=== PATIENT | male | born 1935 | race Caucasian/White ===

== ENCOUNTER 2019-03-10 10:45 | Outpatient (CLI) | payer MEDICARE, SELFPAY ==
--- NOTE | 2019-03-10 11:00 | US_ITS ---
WS: [id number] SCROTAL ULTRASOUND EXAMINATION CLINICAL INFORMATION: INGUINAL MASS: HYDROCOELE AND/OR INGUINAL HERNIA COMPARISON: None. FINDINGS: TESTES Normal in size and echotexture. Large left hydrocele. Color Doppler: Normal color Doppler flow pattern. Right testes size: 3.8 cm x 2.4 cm x 2.9 cm. Left testes size: 3.2 cm x 2.7 cm x 2.6 cm. EPIDIDYMIDES Normal in size and echotexture. Small left spermatocele. Color Doppler: Normal color Doppler flow pattern. Right epididymis size: 0.8 cm Left epididymitis size: 1.7 cm HYDROCELE Large left hydrocele with internal debris. This measures 6.2 x 5.1 cm VARICOCELE None. OTHER FINDINGS None. US/US scrotum [id number] IMPRESSION: 1. Large left hydrocele with some internal debris 6.2 x 5.1 cm 2. Testicles are otherwise unremarkable 3. Incidental small left spermatocele
== END 2019-03-10 10:46 | disposition home or self-care (01) ==
LOC: RAD 10:56
PROVIDERS: Family Provider Family Medicine; PCP Family Medicine; Visit Provider Family Medicine
DX: N43.3 Hydrocele, unspecified (principal); N43.40 Spermatocele of epididymis, unspecified
CPT/HCPCS: 76870

== ENCOUNTER → 2019-05-18 15:23 | Outpatient (BNVA) | payer MEDICARE, SELFPAY | PROVIDERS: Family Provider Family Medicine; PCP Family Medicine; Visit Provider Family Medicine | DX: R63.4 Abnormal weight loss (principal); K52.9 Noninfective gastroenteritis and colitis, unspecified; N40.0 Benign prostatic hyperplasia without lower urinary tract symptoms; E03.9 Hypothyroidism, unspecified; I95.0 Idiopathic hypotension | CPT/HCPCS: 80053; 84443; 85025 ==

== ENCOUNTER 2019-06-09 09:14 | Outpatient (CLI) | payer MEDICARE, SELFPAY ==
--- NOTE | 2019-06-09 09:21 | CT_ITS ---
WS: [id number] CT ABDOMEN AND PELVIS NONCONTRAST HISTORY: abnormal weight loss TECHNIQUE: Imaging performed through the abdomen and pelvis. Coronal and sagittal reformats are submi tted. All CT scans at [facility] use at least one of these dose optimization techniques: automated exposure control; mA and/or kV adjustment per patient size (includes targeted exams where d ose is matched to clinical indication); or iterative reconstruction. DLP: 1455.32 mGycm COMPARISON: None available. Lower thorax: Hyperinflated lung bases from emphysema. No mass or pulmonary nodule. Heart size is sli ghtly enlarged. Moderate coronary artery calcification. Liver: Liver is normal size. No discrete mass identified on this unenhanced study. No bile duct dilat ation. Gallbladder: Markedly abnormal gallbladder. Gallbladder is moderately well distended and contains num erous large calcifications with the largest diameter measuring 4.7 cm. There is diffuse wall thickeni ng. Pancreas: Atrophied pancreas. No mass or duct dilatation. Spleen: Normal. Adrenal glands: Bilateral adrenal gland thickening. No mass. Right kidney: Multiple cortical masses throughout the kidney. Some of these masses are low attenuatio n and some are increased. Cannot further characterized on this unenhanced study. There is no obstruct ion. Left kidney: Multiple cortical masses within the kidney. Some of these are increased density and some are low attenuation. Cannot further characterize. Extensive atherosclerosis of the abdominal aorta. Slightly bilobed appearance of the infrarenal aorta . Maximum diameter 4.2 cm. Dense of dictation calcifications extend into the iliac arteries. Mild aneurysmal dilatation of the L EFT internal iliac measuring 2.0 cm. No free fluid, intraperitoneal air or significant lymphadenopathy. GI tract: Mild fluid and air distention of the GI tract. No obstructive pattern. Diverticula in the d escending and sigmoid colon. Increased soft tissue and increased density in the region of the cecum. Indeterminate for colonic mass without contrast. The appendix is normal. Abdominal wall: Intact. Pelvis: Markedly distended urinary bladder. Urinary bladder extends over a length of 19 cm. Dome of t he bladder is above the umbilicus. Posterior LEFT lateral bladder diverticulum. Prostate gland is enl arged with central calcification. Prostate measures 7.0 x 5.3 x 6.3 cm. There is a large hydrocele on the LEFT. Smaller hydrocele on the RIGHT. These have been described on a recent ultrasound. Fatty mass in the posterior RIGHT thigh at the level of the proximal femur. Mass contains calcification and soft tissue components. Mass measures 7.8 x 6.3 cm. Osseous structures: Grade 1 anterolisthesis of L5 due to bilateral pars defects. Advanced degenerativ e changes throughout the lumbar spine. No acute fractures. CT/CT abdomen pelvis wo con [id number] IMPRESSION: CT examination is significantly limited without IV and oral contrast. 1. Moderately distended gallbladder with numerous large stones and gallbladder wall thickening. Gallbladder neoplasm not excluded. No bile duct dilatation. 2. Markedly distended urinary bladder extends above the umbilicus. Correlate f or bladder outlet obstruction. Bladder diverticula and enlarged prostate. Corre late biochemically for prostate carcinoma. 3. Bilateral hydroceles. 4. Bilateral renal masses of various densities. Without IV contrast cannot exc lude neoplasm. These may all be benign or complex cysts. 5. Soft tissue thickening of the cecum. Neoplasm not excluded. May be fecal re tention. 6. 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 7. Fatty soft tissue mass posterior to the proximal RIGHT femur contains calci fications and nodules. Benign lipoma or liposarcoma should be considered. 8. Sigmoid diverticulosis without acute diverticulitis. 9. Bilateral adrenal hypertrophy.
== END 2019-06-09 09:15 | disposition home or self-care (01) ==
LOC: RADWPI 09:19
PROVIDERS: Family Provider Family Medicine; PCP Family Medicine; Visit Provider Family Medicine
DX: R63.4 Abnormal weight loss (principal); K80.20 Calculus of gallbladder without cholecystitis without obstruction; N32.3 Diverticulum of bladder; N40.0 Benign prostatic hyperplasia without lower urinary tract symptoms; N43.3 Hydrocele, unspecified; N28.89 Other specified disorders of kidney and ureter; I71.9 Aortic aneurysm of unspecified site, without rupture; R22.41 Localized swelling, mass and lump, right lower limb; K57.30 Diverticulosis of large intestine without perforation or abscess without bleeding
CPT/HCPCS: 74176

== ENCOUNTER 2019-06-15 12:22 | Inpatient (IN) | payer MEDICARE, SELFPAY ==
[2019-06-15 12:23] VITALS: BP 101/39; PULSE 70; RESP 16; TEMP 36.6; O2SAT 96; BMI 22.6
--- NOTE | 2019-06-15 12:27 | XR_ITS ---
WS: [id number] PORTABLE CHEST HISTORY: weakness COMPARISON: 07/31/2018 Slight volume loss at the LEFT lung base similar to the prior study. No pneumonia. Normal vasculature . No pleural effusion or pneumothorax. Cardiac size: Normal. Mediastinum/Aorta: Mild atherosclerosis aorta. No osseous abnormality seen. XR/XR chest 1V portable [id number] IMPRESSION: Stable chest with no acute cardiopulmonary disease.
--- NOTE | 2019-06-15 12:27 | ECG_ITS ---
Measurements Intervals [place] Rate: 69 P: [place]: 0 QRS: -70 QRSD: 160 T: 91 QT: 451 QTc: 484 ATRIAL FIBRILLATION WITH ABERRANT CONDUCTION OR VENTRICULAR PREMATURE COMPLEXES LEFT AXIS DEVIATION [QRS AXIS < -30] RIGHT BUNDLE BRANCH BLOCK [120+ ms QRS DURATION, UPRIGHT V1, 40+ ms S IN I/ I/aVL/V4/V5/V6] No previous ECG available for comparison Electronically Signed On 06-15-2019 15:55:49 CDT by Daniel Tejada M.D. [email or web address]
--- NOTE | 2019-06-15 12:29 | ED_ITS ---
Documented by User: Matthew Nolen MD 06/15/19 15:56 HPI - Fall General: Source: patient Mode of arrival: EMS Limitations: no limitations History of Present Illness: HPI Narrative: 84-year-old male states he has been feeling weak over the last 2 to 3 weeks. Patient also tripped today and had a fall. He denies any chest pain or headache before this event. He states that he has history of possible prostate cancer. Per EMS patient was in A. fib and he has no known history of A. fib. He states he feels slightly weak at the moment but otherwise is symptom-free. He denies any injuries from his fall and denies any head pain or hitting his head. complaint: fall Onset (ago): hour(s) Fall from: standing Fall witnessed: yes, by family Place fall occurred: home Loss of consciousness: None Context: tripped/slipped Associated symptoms-after fall: Denies abdominal pain, chest pain, headache(s) or neck pain Review of Systems Const: Denies: fever, chills, body aches or change in appetite Eyes: Denies: blurry vision or eye discomfort ENMT: Denies: throat pain or dental pain Card: Denies: chest pain Resp: Denies: shortness of breath GI: Denies: abdominal pain, nausea, vomiting or diarrhea : Denies: painful urination Musc: Denies: neck pain or back pain Skin/Breast: Denies: rash Neuro: Reports: weakness in extremities; Denies: headache Psych: Denies: depression Jase/Lymph: Denies: easy bruising All/Imm: Denies: hives PFSH ED PFSH: Medical History (Updated 06/16/19 @ 09:37 by Abner Seymour MD) Gait instability Hypertension Prostate cancer Social History (Updated 06/16/19 @ 09:40 by Abner Seymour MD) Smoking and tobacco status: current some day smoker cigarettes [ Other cigarette details: smoked for decades, stopped for a decade, recently resumed occasional use ] Alcohol intake: current Alcohol intake frequency: 0-2 Drinks per Day Lives independently: Yes 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 Physical Exam Const: COMMON NORMALS: no apparent distress, oriented x3 and healthy appearing HENMT: COMMON NORMALS: normocephalic and head/scalp atraumatic HEAD & SCALP: normocephalic and atraumatic Eye: COMMON NORMALS: PERRL and EOMs intact bilaterally PUPIL: Yes PERRL Neck/C-Spine: COMMON NORMALS: full ROM and supple Chest: COMMONS NORMALS: inspection of chest normal and palpation of chest normal Resp: COMMON NORMALS: normal respiratory effort, no retractions, no use of accessory muscles and clear to auscultation bilaterally AUSCULTATION: clear to auscultation bilaterally Cardio: COMMON NORMALS: regular rate, regular rhythm and no murmurs RATE: regular rate RHYTHM: regular rhythm GI: COMMON NORMALS: normal to inspection, nondistended, normoactive bowel sounds, soft to palpation, non-tender and no masses PALPATION: Yes soft Extremity: COMMON NORMALS: normal to inspection and full ROM Neuro: COMMON NORMALS: oriented x3, moves all extremities and no focal motor deficits Psych: COMMON NORMALS: mental status grossly normal, thought process normal and cooperative THOUGHT PROCESS: normal thought process Skin: COMMON NORMALS: no rashes or lesions noted and no wounds GENERAL SKIN EXAM: no rashes or lesions noted Course Vital Signs: Vital signs: Vital Signs Temperature 98.2 F 06/16/19 07:28 Pulse Rate 66 06/16/19 07:28 Respiratory Rate 18 06/16/19 07:28 Blood Pressure 125/76 06/16/19 07:28 Pulse Oximetry 98 06/16/19 07:28 MDM - Fall MDM Narrative: Medical decision making narrative: Patient presents here with falls along with weakness and head CT shows subdural hemorrhage is small in nature. I spoke to Dr. Seymour along with hospitalist and will admit here. Patient's blood pressure has been stable here. Patient's GCS has been 15. Lab Data: Labs: Lab Results 06/15/19 06/15/19 06/15/19 Range/Units 12:40 12:40 12:40 WBC 9.7 (4.0-10.0) 10^3/ uL RBC 3.33 L (4.1-5.3) 10^6/u L Hgb 10.1 L (11.7-16.6) g/dL Hct 31.8 L (42.0-52.0) % MCV 95.5 H (80-94) fL MCH 30.3 (28.0-34.0) pg MCHC 31.8 (30.0-36.0) g/dL RDW 19.8 H (12.1-15.1) % Plt Count 184 (130-400) 10^3/c mm MPV 10.8 H (7.4-10.4) fL Neut % (Auto) 76.9 % Lymph % (Auto) 12.9 % Moody % (Auto) 9.4 % Eos % (Auto) 0.1 % Baso % (Auto) 0.4 % Neut # (Auto) 7.4 (1.8-7.7) 10^3/u L Lymph # (Auto) 1.3 (0.8-4.8) 10^3/u L Moody # (Auto) 0.9 (0.2-0.9) 10^3/u L Eos # (Auto) 0.0 (0.0-0.8) 10^3/u L Baso # (Auto) 0.0 (0.0-0.1) 10^3/u L Nucleated RBC % (a uto) 0 % Nucleated RBCs # 0.0 /100WBC PT 13.10 (10.5-13.3) SECO NDS INR 0.96 (0.8-1.2) Sodium 130 L (136-145) mmol/L Potassium 3.6 (3.5-5.1) mmol/L Chloride 94 L (98-107) mmol/L Carbon Dioxide 23 (22-29) mmol/L Anion Gap 16.6 (5-19) BUN 44 H (8-23) mg/dL Creatinine 1.5 H (0.7-1.2) mg/dL Glucose 99 (65-115) mg/dL Calculated Osmolal ity 268 L (285-295) mOsm/k g Calcium 10.0 (8.5-10.5) mg/dL Total Bilirubin 0.7 (0.15-1.2) mg/dL AST 35 (0-40) U/L ALT 17 (0-41) U/L Alkaline Phosphata se 131 H (40-130) IU/L Total Protein 6.4 L (6.6-8.7) g/dL Albumin 2.6 L (3.5-5.2) g/dL Globulin 3.8 (1.3-4.6) g/dL Imaging Data^: CXR: Attestation: I personally reviewed and interpreted this imaging study as follows: Radiologist's impression: Reason: [place] [address] XRay Report Signed Patient: Antonino Bardales Unit #: [id number] : 1935 Age/Sex: 84 / M ADM Date: 06/15/19 Loc: ER Room/Bed: Attending Dr: Ordering Provider/Ordering MD: Matthew Nolen MD Date of Service: 06/15/19 Procedure(s): XR chest 1V portable [id number] Accession Number(s): [id number] Report Number: [id number] WS: [id number] PORTABLE CHEST HISTORY: weakness COMPARISON: 07/31/2018 Slight volume loss at the LEFT lung base similar to the prior study. No pneumonia. Normal vasculature. No pleural effusion or pneumothorax. Cardiac size: Normal. Mediastinum/Aorta: Mild atherosclerosis aorta. No osseous abnormality seen. XR/XR chest 1V portable [id number] IMPRESSION: Stable chest with no acute cardiopulmonary disease. CT Head: Radiologist's impression: [place] [address] CT Scan Report Signed Patient: Antonino Bardales Unit #: [id number] : 1935 Age/Sex: 84 / M ADM Date: 06/15/19 Loc: ER Room/Bed: Attending Dr: Ordering Provider/Ordering MD: Matthew Nolen MD Date of Service: 06/15/19 Procedure(s): CT head wo con* [id number] Accession Number(s): [id number] Report Number: [id number] WS: [id number] CT HEAD NONCONTRAST HISTORY: weakness TECHNIQUE: Contiguous axial imaging performed through the brain in 2.5 mm imaging. Bone and soft tissue windows. Sagittal and coronal reformats reviewed. All CT scans at [facility] use at least one of these dose optimization techniques: automated exposure control; mA and/or kV adjustment per patient size (includes targeted exams where dose is matched to clinical indication); or iterative reconstruction. DLP: 900.47 mGy.cm COMPARISON: None available. Mixed density RIGHT subdural hematoma. Subdural hematoma extends from the high RIGHT parietal region inferiorly over the temporal, parietal lobes. Maximum diameter of 3.6 mm. There is no significant mass effect upon the brain. There are mixed blood products present. Moderate atrophy bilaterally. No midline shift. Remote LEFT occipital infarct. Moderate chronic microvascular ischemic disease. Small lacunar infarcts in the basal ganglia bilaterally, greater on the RIGHT. Ventricles: Normal size with no hydrocephalus. Paranasal sinuses: As visualized are clear. Mastoid air cells: Well pneumatized. Calvarium and scalp: Skull is intact with no soft tissue edema or swelling. Notified Matthew Nolen MD at 06/15/2019 2:[address]/CT head wo con* [id number] IMPRESSION: 1. Small mixed, RIGHT subdural hematoma with a maximum diameter of 3.6 mm. Acute on subacute blood products. 2. No significant midline shift or mass effect. 3. 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 Operator for Chg Fwd Exam Comprehensive Documented by User: Abner Seymour MD 06/16/19 09:57 PFS ED PFSH: Medical History (Updated 06/16/19 @ 09:37 by Abner Seymour MD) Gait instability Hypertension Prostate cancer Social History (Updated 06/16/19 @ 09:40 by Abner Seymour MD) Smoking and tobacco status: current some day smoker cigarettes [ Other cigarette details: smoked for decades, stopped for a decade, recently resumed occasional use ] Alcohol intake: current Alcohol intake frequency: 0-2 Drinks per Day Lives independently: Yes 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 Course Vital Signs: Vital signs: Vital Signs Temperature 98.2 F 06/16/19 07:28 Pulse Rate 66 06/16/19 07:28 Respiratory Rate 18 06/16/19 07:28 Blood Pressure 125/76 06/16/19 07:28 Pulse Oximetry 98 06/16/19 07:28 fall Lab Data: Labs: Lab Results 06/15/19 06/15/19 06/15/19 Range/Units 12:40 12:40 12:40 WBC 9.7 (4.0-10.0) 10^3/ uL RBC 3.33 L (4.1-5.3) 10^6/u L Hgb 10.1 L (11.7-16.6) g/dL Hct 31.8 L (42.0-52.0) % MCV 95.5 H (80-94) fL MCH 30.3 (28.0-34.0) pg MCHC 31.8 (30.0-36.0) g/dL RDW 19.8 H (12.1-15.1) % Plt Count 184 (130-400) 10^3/c mm MPV 10.8 H (7.4-10.4) fL Neut % (Auto) 76.9 % Lymph % (Auto) 12.9 % Moody % (Auto) 9.4 % Eos % (Auto) 0.1 % Baso % (Auto) 0.4 % Neut # (Auto) 7.4 (1.8-7.7) 10^3/u L Lymph # (Auto) 1.3 (0.8-4.8) 10^3/u L Moody # (Auto) 0.9 (0.2-0.9) 10^3/u L Eos # (Auto) 0.0 (0.0-0.8) 10^3/u L Baso # (Auto) 0.0 (0.0-0.1) 10^3/u L Nucleated RBC % (a uto) 0 % Nucleated RBCs # 0.0 /100WBC PT 13.10 (10.5-13.3) SECO NDS INR 0.96 (0.8-1.2) Sodium 130 L (136-145) mmol/L Potassium 3.6 (3.5-5.1) mmol/L Chloride 94 L (98-107) mmol/L Carbon Dioxide 23 (22-29) mmol/L Anion Gap 16.6 (5-19) BUN 44 H (8-23) mg/dL Creatinine 1.5 H (0.7-1.2) mg/dL Glucose 99 (65-115) mg/dL Calculated Osmolal ity 268 L (285-295) mOsm/k g Calcium 10.0 (8.5-10.5) mg/dL Total Bilirubin 0.7 (0.15-1.2) mg/dL AST 35 (0-40) U/L ALT 17 (0-41) U/L Alkaline Phosphata se 131 H (40-130) IU/L Total Protein 6.4 L (6.6-8.7) g/dL Albumin 2.6 L (3.5-5.2) g/dL Globulin 3.8 (1.3-4.6) g/dL Discharge Plan Discharge Patient Disposition: Admitted As Inpatient Admit Provider: Maxi Lee Condition: Stable Discharge Date/Time: 06/15/19 16:34 Coding Level of Care Code ED Lumber Press Operator for Juniorg Fwd Exam Comprehensive
[2019-06-15] MEDS: sodium chloride 0.9% 1,000 ML 999 ML IV (12:40)
[2019-06-15 12:47] LABS: Basophils % 0.4 %; Eosinophils % 0.1 %; Hematocrit 31.8 % (42.0-52.0); Hemoglobin 10.1 g/dL (11.7-16.6); Lymphocytes # 1.3 10^3/uL (0.8-4.8); Lymphocytes % 12.9 %; Mean Corpuscular HGB Conc 31.8 g/dL (30.0-36.0); Mean Corpuscular Hemoglobin 30.3 pg (28.0-34.0); Mean Corpuscular Volume 95.5 fL (80-94); Mean Platelet Volume 10.8 fL (7.4-10.4); Monocytes # 0.9 10^3/uL (0.2-0.9); Monocytes % 9.4 %; Neutrophils # 7.4 10^3/uL (1.8-7.7); Neutrophils % 76.9 %; Nucleated Red Blood Cells % 0 %; Platelet Count 184 10^3/cmm (130-400); Red Blood Count 3.33 10^6/uL (4.1-5.3); Red Cell Distribution Width 19.8 % (12.1-15.1); White Blood Count 9.7 10^3/uL (4.0-10.0)
[2019-06-15 12:53] VITALS: BP 111/50; PULSE 61; RESP 19; O2SAT 100
[2019-06-15 12:56] LABS: INR 0.96 (0.8-1.2)
[2019-06-15 13:06] LABS: Alanine Aminotransferase 17 U/L (0-41); Albumin Level 2.6 g/dL (3.5-5.2); Alkaline Phosphatase 131 IU/L (40-130); Anion Gap 16.6 (5-19); Aspartate Amino Transferase 35 U/L (0-40); Blood Urea Nitrogen 44 mg/dL (8-23); Carbon Dioxide 23 mmol/L (22-29); Chloride 94 mmol/L (98-107); Globulin 3.8 g/dL (1.3-4.6); Glucose 99 mg/dL (65-115); Osmolality Calculated 268 mOsm/kg (285-295); Potassium 3.6 mmol/L (3.5-5.1); Sodium 130 mmol/L (136-145); Total Bilirubin 0.7 mg/dL (0.15-1.2); Total Protein 6.4 g/dL (6.6-8.7)
--- NOTE | 2019-06-15 13:38 | CT_ITS ---
WS: [id number] CT HEAD NONCONTRAST HISTORY: weakness TECHNIQUE: Contiguous axial imaging performed through the brain in 2.5 mm imaging. Bone and soft tiss ue windows. Sagittal and coronal reformats reviewed. All CT scans at [facility] use at ast one of these dose optimization techniques: automated exposure control; mA and/or kV adjustment pe r patient size (includes targeted exams where dose is matched to clinical indication); or iterative r econstruction. DLP: 900.47 mGy.cm COMPARISON: None available. Mixed density RIGHT subdural hematoma. Subdural hematoma extends from the high RIGHT parietal region inferiorly over the temporal, parietal lobes. Maximum diameter of 3.6 mm. There is no significant mas s effect upon the brain. There are mixed blood products present. Moderate atrophy bilaterally. No midline shift. Remote LEFT occipital infarct. Moderate chronic micro vascular ischemic disease. Small lacunar infarcts in the basal ganglia bilaterally, greater on the RI GHT. Ventricles: Normal size with no hydrocephalus. Paranasal sinuses: As visualized are clear. Mastoid air cells: Well pneumatized. Calvarium and scalp: Skull is intact with no soft tissue edema or swelling. Notified Matthew Nolen MD at 06/15/2019 2:[address]/CT head wo con* [id number] IMPRESSION: 1. Small mixed, RIGHT subdural hematoma with a maximum diameter of 3.6 mm. Acu te on subacute blood products. 2. No significant midline shift or mass effect. 3. Cerebral atrophy with prior LEFT occipital lobe infarct and basal ganglia l acunar infarcts.
--- NOTE | 2019-06-15 14:49 | XR_ITS ---
WS: [id number] LEFT WRIST: 3 VIEW(S) TECHNIQUE: PA, oblique and lateral. HISTORY: injury COMPARISON: None available. No acute fracture or dislocation. Mild narrowing of the distal radioulnar joint space in the radiocarpal joint spaces. 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 No soft tissue swelling. XR/XR wrist LT min 3V* [id number] IMPRESSION: Degenerative changes at the LEFT wrist but no fracture.
[2019-06-15 15:23] VITALS: BP 103/49; PULSE 68; RESP 16; O2SAT 96
[2019-06-15] MEDS: sodium chloride 0.9% 1,000 ML 100 ML IV (15:46)
[2019-06-15 16:00] VITALS: BP 135/63; PULSE 65; RESP 18; O2SAT 97
--- NOTE | 2019-06-15 16:35 | PM.CONSULT ---
Providers/Reason For Consult Consulting Physican/Specialty*: Dia Seymour MD/neurosurgery Reason for Consult*: Subdural hematoma Requesting Physcian: Dr. Nolen Attending Physician: Maribeth Diaz MD History of Present Illness History of Present Illness Antonino Bardales is a 84 year old male who presented to the emergency department after a trip and fall. He reported no loss of consciousness. EKG indicates atrial fibrillation. He reports generalized weakness for 2-[address] obtained through the emergency department identified an acute/subacute on chronic right subdural hematoma of less than 0.5 cm diameter. There is minimal mass-effect and no midline shift. He was noted to have a GCS of 15 in the emergency department. He is to be placed in the hospital for observation/medical management. Neurosurgery consultation was requested. Review of Systems Const: Denies: fever or chills Eyes: Denies: change in vision or photophobia ENMT: Denies: ear discharge, change in hearing or nasal discharge Card: Reports: swelling of feet/ankles; Denies: chest pain or palpitations Resp: Denies: shortness of breath or productive cough GI: Denies: abdominal pain, nausea or vomiting : Denies: flank pain or painful urination Musc: Reports: muscle weakness (generalized weakness in legs); Denies: neck pain Skin/Breast: Reports: sores Neuro: Reports: weakness in extremities, difficulty walking and frequent falls; Denies: headache or numbness in extremities Psych: Denies: anxiety or depression Endo: Denies: excessive thirst Jase/Lymph: Reports: easy bruising and purpura Meds/Allergies Home Medications and Allergies Home Medications Medication Instructions Recorded Confirmed Last Taken Type allopurinol 300 mg tablet 300 mg PO QDAY 03/09/19 06/10/19 Unknown History budesonide-formoterol HFA 80 2 puff INHALATION BID 03/09/19 06/10/19 Unknown History mcg-4.5 mcg/actuation aerosol inhaler furosemide 40 mg tablet 40 mg PO BID 03/09/19 06/10/19 Unknown History silodosin 8 mg capsule 8 mg PO QDAY 03/09/19 06/10/19 Unknown History finasteride 1 mg tablet 1 mg PO QDAY 90 Days #90 tab 04/13/19 06/10/19 Unknown Rx potassium chloride 20 mEq 20 meq PO BID 30 Days #60 tab 05/19/19 06/10/19 Unknown Rx tablet,extended release metolazone 5 mg tablet 5 mg PO .as needed 30 Days #30 tab 06/03/19 06/10/19 Unknown Rx colchicine 0.6 mg capsule 0.6 mg PO QDAY 90 Days #90 cap 06/11/19 Unknown Rx cefuroxime axetil 500 mg PO BID #14 tab 06/17/19 Unknown Rx Allergies Allergy/AdvReac Type Severity Reaction Status Date / Time No Known Drug Allergies Allergy Unknown Unverified 06/19/19 10:49 Current Medications Current Medications Generic Name Dose Route Start Last Admin Trade Name Freq PRN Reason Stop Dose Admin Sodium Chloride 1,000 mls @ 100 mls/hr 06/15/19 15:45 06/15/19 15:46 Sodium Chloride 0.9% IV 100 mls/hr .Q10H JANUSZ Administration PFSH Acute PFSH: Social History (System 06/19/19 @ 10:49 by Maricel Byrd) Smoking and tobacco status: current some day smoker cigarettes [ Other cigarette details: smoked for decades, stopped for a decade, recently resumed occasional use ] Alcohol intake: current Alcohol intake frequency: 0-2 Drinks per Day Adopted: No Caregiver/support person: No Lives independently: Yes Household members: significant other Marital status: / 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 History of recent travel: No Current gender identity: Male Vitals/I&O/Wt Last Vital Signs Temp 97.9 F 06/15/19 12:23 Pulse 65 06/15/19 16:00 Resp 18 06/15/19 16:00 BP 135/63 06/15/19 16:00 Pulse Ox 97 06/15/19 16:00 06/15/19 06/15/19 06/15/19 06:59 14:59 22:59 Intake Total 1000 / 1000 Balance 1000 / 1000 Weight last 48 hrs Weight 172 lb Physical Exam Const: COMMON NORMALS: no apparent distress and alert EXAM LIMITATIONS: no altered mental status GENERAL APPEARANCE: cooperative and comfortable NUTRITIONAL APPEARANCE: thin HENMT: COMMON NORMALS: normocephalic, head/scalp atraumatic and hearing grossly normal bilaterally HEAD & SCALP: normocephalic, atraumatic and other (No otorrhea/rhinorrhea); no cyanosis of lips/distal nose, no Gross's sign and no raccoon eyes FACE & SINUS: no acrocyanosis present TEETH & GINGIVA: Yes dentures Eye: COMMON NORMALS: EOMs intact bilaterally and conjunctivae normal ALIGNMENT: Yes alignment normal EYELID: eyelids normal CONJUNCTIVA: Yes conjunctivae normal Neck/C-Spine: COMMON NORMALS: negative for full ROM GENERAL: Yes normal visual inspection, Yes trachea midline, No tender and No tracheal deviation CERVICAL SPINE: Yes cervical ROM abnormal, No pain with cervical ROM and No cervical spine tenderness Resp: COMMON NORMALS: normal respiratory effort EFFORT & INSPECTION: Yes able to speak in complete sentences, No tachypneic and No stridor Cardio: COMMON NORMALS: regular rate JUGULAR VENOUS DISTENTION: no JVD RATE: regular rate : COMMON NORMALS: No no CVA tenderness BLADDER/KIDNEY EXAM: No no CVA tenderness Back/Pelvis: COMMON NORMALS: thoracic and lumbar spine normal to inspection; negative for no CVA tenderness THORACIC SPINE/UPPER BACK: No thoracic spinal tenderness LUMBAR SPINE/LOWER BACK: No lumbar spinal tenderness PELVIS: Yes other (superficial skin breakdown) COCCYX: other (superficial skin breakdown) Extremity: COMMON NORMALS: no clubbing, cyanosis or edema RIGHT UPPER EXTREMITY: Yes shoulder joint Right shoulder: Yes ROM (decreased) LEFT UPPER EXTREMITY: Yes shoulder joint Left shoulder joint: Yes ROM (decreased) Neuro: COMMON NORMALS: moves all extremities and no sensory deficits noted SENSORIUM/ORIENTATION: Yes alert CRANIAL NERVES: Yes CN III (oculomotor), Yes CN IV (trochlear), Yes CN V (trigeminal), Yes CN (abducens), Yes CN VII (facial), Yes CN VIII (vestibulocochlear), Yes CN XI (spinal accessory) and Yes CN XII (hypoglossal) SPEECH: speech normal GAIT: Yes assistive device used cane SENSORY EXAM: Yes extremities (light touch) MOTOR EXAM: strength 5/5 throughout (No focal lower extremity motor weakness) and strength abnormal (bilateral shoulder joint disease limits deltoid assessment) Psych: COMMON NORMALS: mental status grossly normal and speech normal ATTITUDE: Yes calm and Yes engaged ACTIVITY/MOTOR BEHAVIOR: Yes appropriate eye contact SPEECH: Yes normal speech MOOD & AFFECT: Yes euthymic mood ATTENTION/CONCENTRATION: Yes attention grossly intact INSIGHT: fair Skin: GENERAL SKIN EXAM: purpura (scattered) Data Imaging^: CT Head: Radiologist's impression: IMPRESSION: 1. Small mixed, RIGHT subdural hematoma with a maximum diameter of 3.6 mm. Acute on subacute blood products. 2. No significant midline shift or mass effect. 3. 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 EKG^: EKG 1: Slip Cover Operator Interpretation: ATRIAL FIBRILLATION WITH ABERRANT CONDUCTION OR VENTRICULAR PREMATURE COMPLEXES LEFT AXIS DEVIATION [QRS AXIS < -30] RIGHT BUNDLE BRANCH BLOCK [120+ ms QRS DURATION, UPRIGHT V1, 40+ ms S IN I/ I/aVL/V4/V5/V6] No previous ECG available for comparison. A&P Assessment and plan (1) Subdural hematoma: Patient is seen in neurosurgery consultation after presenting to the emergency department with a history of recent falls. He has a thin right convexity subdural hematoma, with an acute component. He is alert, conversant, and without apparent acute/focal neurologic deficits. He is not anticoagulated. Recommend conservative management. -Neuro checks. -Fall precautions. -No antiplatelet agents/anticoagulation. -Repeat CT (Head) in AM. -Consideration of prison facility placement (short-term versus long-term). (2) Gait instability: Consult Attestations Medical Necessity Statement: Patient is appropriate for in-hospital monitoring and management related to right convexity subdural hematoma, gait instability, and medical comorbidities. Coding Level of Care Code Acute Insurance Verification Specialist for Chg Fwd Exam Comprehensive Diagnoses Subdural hematoma S06.5X9A Gait instability R26.81 Time Spent (min) 45
--- NOTE | 2019-06-15 16:43 | P.HP_ITS ---
Providers/Chief Complaint Admitting Physician: Maribeth Diaz MD Chief Complaint: WEAKNESS,FALL,SUBDURAL HEMORRHAGE History of Present Illness Antonino Bardales is a 84 year old male with a reported PMH CAD, chronic LE swelling on diuretics who is brought to ER today with c/o recurrent falls over the past 2-3 weeks. It is unclear what was causing the falls, however patient and his family (sister) appear to attribute this to gait disturbances over this time period. It is unclear when he first fell or when he hit his head. He states he may have had some head trauma during some of these falls. Yesterday and again this morning he feel and had pain in his wrist, which brought him in. Per his girlfriend he has been having a more subtle cognitive decline over the past year or so. He is often forgetful, disoriented to time. But at other times is is completely lucid. He has been having more gait disturbances since last year also. He has not previously been evaluated for dementia. Additionally he has lost a significant amount of weight in the past year for which he recently saw his primary care physician Dr. Powell. And reportedly he underwent a CT of the chest and abdomen, the results of which are still pending. CT head was performed which showed Small mixed, RIGHT subdural hematoma with a maximum diameter of 3.6 mm. Acute on subacute blood products. no midline shift or mass effect. he is not on any anticoagulants or antiplatelets. Review of Systems General: Reports: 10 or more systems reviewed and unremarkable except in HPI and below Const: Denies: fever, chills or body aches Eyes: Denies: change in vision, blurry vision or photophobia ENMT: Reports: hoarseness; Denies: throat pain, enlarged tonsils, painful swallowing or nasal congestion Card: Denies: chest pain, palpitations, irregular heart rhythm, edema, swelling of feet/ankles, lightheadedness, pre-syncope, shortness of breath on exertion or shortness of breath when lying down Resp: Denies: shortness of breath, productive cough, non-productive cough, wheezing, stridor, pain on inspiration, change in phlegm color, coughing up blood or chest congestion GI: Denies: abdominal pain, nausea, vomiting, vomiting blood, coffee grounds in vomit, difficulty swallowing, heartburn/indigestion, diarrhea, constipation, cramping, change in stool character, blood in stool or black tarry stool : Denies: flank pain, painful urination, urinary frequency, urinary urgency, urinary hesitancy or blood in urine Musc: Denies: neck pain, back pain, extremity pain, joint swelling, joint warmth or deformity Neuro: Denies: headache, numbness in extremities, weakness in extremities, changes in sensation, difficulty walking, frequent falls, dizziness, vertigo, behavioral changes, slurred speech or seizure-like activity Psych: Denies: anxiety, depression, suicidal ideation or homicidal ideation Endo: Denies: excessive urination, excessive thirst, tired all the time, cold intolerance or hot flashes Jase/Lymph: Denies: easy bruising or easy bleeding Medications/Allergies Home Medications Medication Instructions Recorded Confirmed Last Taken Type furosemide See Rx Instructions .ROUTE .COMPLEX 06/15/19 06/15/19 06/14/19 History metolazone 5 mg PO DAILY PRN 06/15/19 06/15/19 06/14/19 History potassium chloride [Klor-Con M20] 20 meq PO BID 06/15/19 06/15/19 06/14/19 History Allergies Allergy/AdvReac Type Severity Reaction Status Date / Time No Known Drug Allergies Allergy Unknown Verified 06/15/19 12:32 PFSH Acute PFSH: Medical History (Updated 06/16/19 @ 09:37 by Abner Seymour MD) Gait instability Hypertension Prostate cancer Social History (Updated 06/16/19 @ 09:40 by Abner Seymour MD) Smoking and tobacco status: current some day smoker cigarettes [ Other cigarette details: smoked for decades, stopped for a decade, recently resumed occasional use ] Alcohol intake: current Alcohol intake frequency: 0-2 Drinks per Day Lives independently: Yes 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 Data : 06/16/19 04:11 06/16/19 04:11 A&P Additional A&P Information Admit to med/surg with close neuro observation # subdural hematoma Small mixed, RIGHT subdural hematoma with a maximum diameter of 3.6 mm. Acute on subacute blood products. Unclear chronicity Close neuro checks PT/OT/speech eval Gait assessment, orthostatics telemetry- A fib with aberrant conduction. Will look for any underlying arrhythmias which may contribute to falls Repeat CT head in morning to assess stability of hematoma Blood pressure control health services administrator consult for placement/HHS as appropriate after PT assessment HTN: Currently well contrrolled DVT ppx: SCDs Full code Attestations Medical Necessity Statement*: Expect > 2 midnight for close neuro obervation, PT evaluation, will likely require SNF placement Coding Level of Care Code Acute Professional System Administrator for Sangeetha Rosado
[2019-06-15 16:55] VITALS: BP 110/57; PULSE 60; RESP 18; TEMP 36.5; O2SAT 97
[2019-06-15 17:36] LABS: Add Urine Microscopic? YES; Bilirubin Urine Neg (NEGATIVE); Blood Urine Neg (Negative); Glucose Urine UA Norm (Normal); Ketones Urine Negative (Negative); Leukocyte Esterase Urine 2+ (Negative); Nitrate Urine Positive (Negative); Protein Urine Neg (Negative); Specific Gravity, Urine 1.005 (1.005-1.030); Urine Appearance Cloudy (CLEAR); Urine Color Yellow (Yellow); Urobilinogen Urine Norm (Negative); pH Urine 7 (5-7)
[2019-06-15 17:42] LABS: Add Urine Culture? Yes; Bacteria Urine 1+; Squamous Epithelial Cell Urine 0-4 (0-5); WBC Urine 25-40 /hpf (0-5)
[2019-06-15 19:58] VITALS: BP 109/53; PULSE 78; RESP 18; TEMP 36.5; O2SAT 97
[2019-06-16] VITALS (8 sets, daily range): BP systolic 105–148; BP diastolic 52–98; PULSE 55–85; RESP 16–20; TEMP 36.3–37.6; O2SAT 96–98
[2019-06-16] MEDS: sodium chloride 0.9% 1,000 ML 100 ML IV ×3 (02:07→22:36)
[2019-06-16 04:29] LABS: Basophils % 0.3 %; Eosinophils % 0.4 %; Hematocrit 31.5 % (42.0-52.0); Lymphocytes # 1.7 10^3/uL (0.8-4.8); Lymphocytes % 16.8 %; Mean Corpuscular HGB Conc 31.7 g/dL (30.0-36.0); Mean Corpuscular Hemoglobin 30.4 pg (28.0-34.0); Mean Corpuscular Volume 95.7 fL (80-94); Mean Platelet Volume 11.1 fL (7.4-10.4); Monocytes # 0.8 10^3/uL (0.2-0.9); Monocytes % 8.3 %; Neutrophils # 7.4 10^3/uL (1.8-7.7); Neutrophils % 73.8 %; Nucleated Red Blood Cells % 0 %; Platelet Count 206 10^3/cmm (130-400); Red Blood Count 3.29 10^6/uL (4.1-5.3); Red Cell Distribution Width 19.9 % (12.1-15.1); White Blood Count 10.1 10^3/uL (4.0-10.0)
[2019-06-16 04:55] LABS: Estmated Average Glucose 126
[2019-06-16 04:56] LABS: Alanine Aminotransferase 18 U/L (0-41); Albumin Level 2.5 g/dL (3.5-5.2); Alkaline Phosphatase 119 IU/L (40-130); Aspartate Amino Transferase 39 U/L (0-40); Blood Urea Nitrogen 37 mg/dL (8-23); Carbon Dioxide 24 mmol/L (22-29); Chloride 101 mmol/L (98-107); Glucose 83 mg/dL (65-115); Osmolality Calculated 283 mOsm/kg (285-295); Sodium 138 mmol/L (136-145); Total Bilirubin 0.6 mg/dL (0.15-1.2); Total Protein 6.5 g/dL (6.6-8.7)
[2019-06-16 05:10] LABS: Chol HDL Ratio 3.35 mg/dL (1.0-5.00); Cholesterol 104 mg/dL (0-200); HDL Cholesterol 31 mg/dL (60-100); LDL Cholesterol Calculated 51 mg/dL (50-129); LDL HDL Ratio 1.65 RATIO (0.00-3.22); Thyroid Stimulating Hormone 1.15 uIU/mL (0.27-4.20); Triglycerides 112 mg/dL (0-150)
--- NOTE | 2019-06-16 08:00 | CT_ITS ---
WS: [id number] CT HEAD NONCONTRAST HISTORY: subdural hematoma, followup TECHNIQUE: Contiguous axial imaging performed through the brain in 2.5 mm imaging. Bone and soft tiss ue windows. Sagittal and coronal reformats reviewed. All CT scans at [facility] use at le ast one of these dose optimization techniques: automated exposure control; mA and/or kV adjustment pe r patient size (includes targeted exams where dose is matched to clinical indication); or iterative r econstruction. DLP: 1745.56 mGy.cm COMPARISON: 06/15/2019 Mixed RIGHT subdural hematoma extends from the high RIGHT parietal lobe inferiorly over the parietal and temporal lobes and has not significantly changed in appearance. Diameter of the mixed subdural he matoma measures 3 to 4 mm. There may be very slight mass effect upon the cerebrum. There is no midlin e shift. No mass effect. Mild atrophy and moderate chronic microvascular ischemic disease. Remote LEFT occipital lobe infarct. Numerous small lacunar infarcts in the basal ganglia. Ventricles: Ventricles and extra-axial spaces are very slightly prominent on the basis of atrophy. Paranasal sinuses: No interval change. No air-fluid levels. Mastoid air cells: Well pneumatized. Calvarium and scalp: Skull is intact with no soft tissue edema or swelling. CT/CT head wo con* [id number] IMPRESSION: 1. Mixed (acute on chronic) small RIGHT subdural hematoma is unchanged since . No increase in the amount of acute blood products. 2. No midline shift. 3. Atrophy and chronic ischemic changes and remote LEFT occipital lobe infarct are stable.
--- NOTE | 2019-06-16 11:24 | PC.CHAP ---
Pastoral Care Encounter/Spiritual Assessment Type of Contact [X] Declined transmission superintendent visit [] Patient/Family/Request visit [] Outpatient visit [] Follow-up visit [] Physician referral [] Code/Alert [] Routine visit [] Staff referral [] Actively dying [] Patient sleeping [] Family support [] [] Out of room [] Palliative care [] [] Receiving care in room [] Pre-surgical visit [] Trauma [] Long length of stay [] ICU visit [] Other: Relational/Emotional Strength [] Patient feels connected with others/family/visitors/staff [] Distress [] Loneliness/isolation [] Abandonment Spirituality of Patient [] Person of Emy [] Attends Amish of their Emy [] Believes in Prayer [] Reads Bible or Amish materials [] There are Spiritual issues to be addressed Screening Nurse Interventions [] Prayer [] Active listening [] Non-anxious presence [] Spiritual/emotional support [] Crisis/trauma care [] Spiritual counseling [] Bereavement support [] Provided bereavement packet [] Provided Bible/devotional materials [] Provided toy/stuffed animal, coloring book to patient or family member [] Provided Communion [] Anointing/[place] [] Salvation [] Completed spiritual assessment [] Other: Impact on Illness or Injury [] Angry [] Fearful [] Anxious [] Often cries [] Exhaustion [] Unable to work [] Unable to attend amish [] Unable to walk/stand [] Unable to read [] Unable to drive [] Unable to eat/drink [] Unable to sleep [] Unable to be with family [] Patient intubated [] Other: Summary Declined transmission superintendent visit Time spent with patient 5 mins
--- NOTE | 2019-06-16 16:33 | P.PN_ITS ---
Subjective Subjective: Interval history: No complaints. Denies headache. Medications: Reviewed: Yes Vitals/I&O/Wt Last Vital Signs Temp 98.4 F 06/16/19 15:23 Pulse 59 L 06/16/19 15:23 Resp 16 06/16/19 15:23 BP 111/52 06/16/19 15:23 Pulse Ox 97 06/16/19 15:23 06/16/19 06/16/19 06/16/19 06:59 14:59 22:59 Intake Total 1000 / 2000 1600 / 1600 Output Total 175 / 175 300 / 300 Balance 825 / 1825 1300 / 1300 Weight last 48 hrs Weight 172 lb Physical Exam Const: COMMON NORMALS: no apparent distress and alert EXAM LIMITATIONS: no altered mental status GENERAL APPEARANCE: cooperative and comfortable NUTRITIONAL APPEARANCE: thin HENMT: COMMON NORMALS: normocephalic, head/scalp atraumatic and hearing grossly normal bilaterally HEAD & SCALP: normocephalic, atraumatic and other (No otorrhea/rhinorrhea); no cyanosis of lips/distal nose, no Gross's sign and no raccoon eyes FACE & SINUS: no acrocyanosis present TEETH & GINGIVA: Yes dentures Eye: COMMON NORMALS: EOMs intact bilaterally and conjunctivae normal ALIGNMENT: Yes alignment normal EYELID: eyelids normal CONJUNCTIVA: Yes conjunctivae normal Neck/C-Spine: GENERAL: Yes normal visual inspection, Yes trachea midline, No tender and No tracheal deviation Resp: COMMON NORMALS: normal respiratory effort EFFORT & INSPECTION: Yes able to speak in complete sentences, No tachypneic and No stridor Cardio: COMMON NORMALS: regular rate JUGULAR VENOUS DISTENTION: no JVD RATE: regular rate Back/Pelvis: PELVIS: Yes other (superficial skin breakdown) COCCYX: other (superficial skin breakdown) Extremity: COMMON NORMALS: no clubbing, cyanosis or edema RIGHT UPPER EXTREMITY: Yes shoulder joint LEFT UPPER EXTREMITY: Yes shoulder joint Neuro: COMMON NORMALS: moves all extremities and no sensory deficits noted SENSORIUM/ORIENTATION: Yes alert CRANIAL NERVES: Yes CN III (oculomotor), Yes CN IV (trochlear), Yes CN V (trigeminal), Yes CN (abducens), Yes CN VII (facial), Yes CN VIII (vestibulocochlear), Yes CN XI (spinal accessory) and Yes CN XII (hypoglossal) SPEECH: speech normal GAIT: Yes other (not tested) SENSORY EXAM: Yes extremities (light touch) MOTOR EXAM: strength 5/5 throughout (No focal lower extremity motor weakness) and strength abnormal (bilateral shoulder joint disease limits deltoid assessment) Psych: COMMON NORMALS: mental status grossly normal and speech normal ATTITUDE: Yes calm and Yes engaged ACTIVITY/MOTOR BEHAVIOR: Yes appropriate eye contact SPEECH: Yes normal speech MOOD & AFFECT: Yes euthymic mood ATTENTION/CONCENTRATION: Yes attention grossly intact INSIGHT: fair Skin: GENERAL SKIN EXAM: purpura (scattered) Data : 06/16/19 04:11 06/17/19 07:24 CT Head: Radiologist's impression: IMPRESSION: 1. Mixed (acute on chronic) small RIGHT subdural hematoma is unchanged since 06/15/2019. No increase in the amount of acute blood products. 2. No midline shift. 3. Atrophy and chronic ischemic changes and remote LEFT occipital lobe infarct are stable. A&P Assessment and plan (1) Subdural hematoma: Patient is seen in neurosurgery followup after presenting to the emergency department yesterday with a history of recent falls. He has a thin right convexity acute on chronic subdural hematoma that appears stable on followup imaging today. He is alert, conversant, and without apparent acute/focal n eurologic deficits. He is not anticoagulated. Recommend continued conservative management. -Neuro checks. -Daily Physical Therapy during hospital stay. -Fall precautions. -No antiplatelet agents/anticoagulation. -Repeat CT (Head) with new/progressive neuro signs or symptoms. -Consideration of correction facility placement (short-term versus long- term). -Outpatient Neurosurgery follow-up in 2 weeks, with repeat CT head prior to visit. (2) Gait instability: Attestations Medical Necessity Statement*: Patient is appropriate for in-hospital management/monitoring related to acute subdural hematoma, gait instability, and medical comorbidities. Time Spent in Patient Care: less than 15 minutes Coding Level of Care Code Acute Element Winding Machine Tender for g Fwd Exam Comprehensive Diagnoses Subdural hematoma S06.5X9A Gait instability R26.81
--- NOTE | 2019-06-16 19:23 | PM.PN ---
Subjective Subjective: Interval history: no new complaints today. Feels well. Participated with PT. hematoma stable on morning CT Medications: Reviewed: Yes Vitals/I&O/Wt Last Vital Signs Temp 98.4 F 06/16/19 15:23 Pulse 59 L 06/16/19 15:23 Resp 16 06/16/19 15:23 BP 111/52 06/16/19 15:23 Pulse Ox 97 06/16/19 15:23 06/16/19 06/16/19 06/16/19 06:59 14:59 22:59 Intake Total 1000 / 2000 1600 / 1600 240 / 1840 Output Total 175 / 175 300 / 300 Balance 825 / 1825 1300 / 1300 240 / 1540 Weight last 48 hrs Weight 78.018 kg Physical Exam Narrative: EXAM NARRATIVE: GEN: Awake, alert and oriented, no acute distress, answers questions appropriately, able to dial numbers on his phone CVS: S1S2 N RS: CTA B/L except crackles over RUL Abd: Soft, nt/nd , bs+ BLENDER/BRAZE APPLICATOR: no focal neuro deficits Data : 06/16/19 04:11 06/16/19 04:11 A&P Assessment and plan (1) Subdural hematoma: Status: Acute (2) UTI (urinary tract infection): Status: Acute (3) Weight loss: Status: Acute Additional A&P Information # subdural hematoma Small mixed, RIGHT subdural hematoma with a maximum diameter of 3.6 mm. Acute on subacute blood products. No gross changes on CT this morning. Unclear chronicity Close neuro checks PT/OT/speech eval Blood pressure controlled # urinary tract infection: + UA, denies any gross complaints except for poor urinary stream # Weight loss over past year , recent underwent w/up with Dr. Powell incl CT abdomen, will request records from office #HTN: Currently well contrrolled DVT ppx: SCDs Full code Attestations Medical Necessity Statement*: Assess stability of SDH, therapy assessment, SNF placement Coding Level of Care Code Acute Catalyst Plant Supervisor for Chg Fwd Diagnoses Subdural hematoma S06.5X9A UTI (urinary tract infection) N39.0 Weight loss R63.4
[2019-06-17] VITALS: BP 104/79; PULSE 94; RESP 18; TEMP 37.1; O2SAT 97
[2019-06-17 03:01] VITALS: BP 104/79; PULSE 94; RESP 18; TEMP 37.1
[2019-06-17 03:35] VITALS: BP 123/56; PULSE 80; RESP 16; TEMP 36.9; O2SAT 95
[2019-06-17 07:45] VITALS: BP 114/60; PULSE 93; RESP 18; TEMP 36.7; O2SAT 95
[2019-06-17 07:53] LABS: Alanine Aminotransferase 22 U/L (0-41); Albumin Level 2.9 g/dL (3.5-5.2); Alkaline Phosphatase 125 IU/L (40-130); Anion Gap 15.7 (5-19); Aspartate Amino Transferase 40 U/L (0-40); Blood Urea Nitrogen 27 mg/dL (8-23); Calcium 10.3 mg/dL (8.5-10.5); Carbon Dioxide 22 mmol/L (22-29); Chloride 100 mmol/L (98-107); Globulin 4.1 g/dL (1.3-4.6); Glucose 102 mg/dL (65-115); Osmolality Calculated 275 mOsm/kg (285-295); Potassium 3.7 mmol/L (3.5-5.1); Sodium 134 mmol/L (136-145); Total Bilirubin 0.6 mg/dL (0.15-1.2)
[2019-06-17] MEDS: cefTRIAXone 1,000 MG in sodium chloride 0.9% (plus) 50 ML 100 MG IV (09:31)
[2019-06-17] MEDS: sodium chloride 0.9% 1,000 ML 100 ML IV (09:33)
--- NOTE | 2019-06-17 10:28 | PM.PN ---
Subjective Subjective: Interval history: Denies headache/nausea/vomiting. Reports good appetite, but difficulty resting. Interested in going to [facility] for Rehab. Vitals/I&O/Wt Last Vital Signs Temp 98.0 F 06/17/19 07:45 Pulse 93 06/17/19 07:45 Resp 18 06/17/19 07:45 BP 114/60 06/17/19 07:45 Pulse Ox 95 06/17/19 07:45 06/16/19 06/17/19 06/17/19 22:59 06:59 14:59 Intake Total 1141.667 / 2741.667 220 / 2961.667 1360 / 1360 Output Total 475 / 775 Balance 1141.667 / 2441.667 -255 / 2186.667 1360 / 1360 Weight last 48 hrs Weight 172 lb Physical Exam Const: COMMON NORMALS: no apparent distress and alert EXAM LIMITATIONS: no altered mental status GENERAL APPEARANCE: cooperative and comfortable NUTRITIONAL APPEARANCE: thin HENMT: COMMON NORMALS: normocephalic and head/scalp atraumatic HEAD & SCALP: normocephalic, atraumatic and other (No otorrhea/rhinorrhea); no cyanosis of lips/distal nose, no Gross's sign and no raccoon eyes FACE & SINUS: no acrocyanosis present TEETH & GINGIVA: Yes dentures Eye: COMMON NORMALS: EOMs intact bilaterally and conjunctivae normal ALIGNMENT: Yes alignment normal EYELID: eyelids normal CONJUNCTIVA: Yes conjunctivae normal Neck/C-Spine: GENERAL: Yes normal visual inspection, Yes trachea midline and No tracheal deviation Resp: COMMON NORMALS: normal respiratory effort EFFORT & INSPECTION: Yes able to speak in complete sentences, No tachypneic and No stridor Cardio: JUGULAR VENOUS DISTENTION: no JVD Extremity: COMMON NORMALS: no clubbing, cyanosis or edema RIGHT UPPER EXTREMITY: Yes shoulder joint LEFT UPPER EXTREMITY: Yes shoulder joint Neuro: COMMON NORMALS: moves all extremities and no sensory deficits noted SENSORIUM/ORIENTATION: Yes alert CRANIAL NERVES: Yes CN III (oculomotor), Yes CN IV (trochlear), Yes CN V (trigeminal), Yes CN (abducens), Yes CN VII (facial), Yes CN VIII (vestibulocochlear), Yes CN XI (spinal accessory) and Yes CN XII (hypoglossal) SPEECH: speech normal GAIT: Yes other (not tested) SENSORY EXAM: Yes extremities (light touch) MOTOR EXAM: strength 5/5 throughout (no focal lower extremity deficits noted, except right foot dorsiflexor weakness) and strength abnormal (bilateral shoulder joint disease limits deltoid assessment) Psych: COMMON NORMALS: mental status grossly normal and speech normal ATTITUDE: Yes calm and Yes engaged ACTIVITY/MOTOR BEHAVIOR: Yes appropriate eye contact SPEECH: Yes normal speech MOOD & AFFECT: Yes euthymic mood ATTENTION/CONCENTRATION: Yes attention grossly intact INSIGHT: fair Skin: GENERAL SKIN EXAM: purpura (scattered) Data : 06/16/19 04:11 06/17/19 07:24 A&P Assessment and plan (1) Subdural hematoma: Patient is seen in neurosurgery followup after presenting to the emergency department on 06/15/2019 with a history of recent falls. He has a thin right convexity acute on chronic subdural hematoma that appeared stable on followup imaging yesterday. He is alert, conversant, and without apparent acute/focal neurologic deficits related to the hematoma. He is not anticoagulated. He was seen by physical therapy yesterday. Recommend continued conservative management. -Neuro checks. -Daily Physical Therapy during hospital stay. -Fall precautions. -No antiplatelet agents/anticoagulation. -Repeat CT (Head) with new/progressive neuro signs or symptoms. -senior care facility placement (short-term versus long-term). Patient requests [facility], and would like to go today. Informed patient that he will likely require another day in the hospital for additional PT/monitoring before SNF placement. Placed [employer] consultation for assistance with discharge planning. -Outpatient Neurosurgery follow-up in 2 weeks, with repeat non-contrast CT (Head) prior to visit. -Final decision regarding discharge timing as per Hospitalist. -Discussed utility of outpatient work-up of gait instability, including lumbar spine imaging. (2) Gait instability: Attestations Medical Necessity Statement*: Patient is appropriate for in-hospital management/monitoring related to acute subdural hematoma, gait instability, and medical comorbidities. Time Spent in Patient Care: less than 15 minutes Coding Level of Care Code Acute Talent Coordinator for [facility] Fwd Exam Comprehensive Diagnoses Subdural hematoma S06.5X9A Gait instability R26.81
[2019-06-17 11:45] VITALS: BP 120/62; PULSE 71; RESP 18; TEMP 36.8; O2SAT 98
--- NOTE | 2019-06-17 13:08 | P.DS_ITS ---
Discharge Providers Date of Admission: 06/15/19 15:46 Date of Discharge: June 17, 2019 Attending Provider at Admission: Maxi Lee MD Attending Provider at Discharge: Nolan Roque MD Diagnoses at Discharge Discharge Diagnosis (1) Subdural hematoma: Status: Acute Problem details: Neurosurgery consultation is obtained. Overall no change. Discharge to skilled care. (2) Gait instability: Status: Acute Problem details: PT/OT evaluation and discharge to skilled care. Reason for Visit Reason for Visit: Reason For Visit: WEAKNESS,FALL,SUBDURAL HEMORRHAGE Hospital Course Hospital Course: Antonino is an 84-year-old white male with gait instability, who presented to the ER with history of multiple falls, gradual cognitive decline. He was found to have a small subdural hematoma on CT head. Concern of UTI was present as well. Neurosurgical consultation was obtained, anticoagulants and antiplatelets were avoided, and he was placed on Rocephin for UTI. During his hospital course he had gradual improvement, but secondary to gait instability and recent subdural it was thought he should transition to care home facility for rehabilitation and strengthening. This occurred on June 16. Hyponatremia was also present on admission, that gradually improved during his hospital stay. TSH was checked and normal. B12 level was ordered and pending at discharge and will need followed up. CT head was repeated while in the hospital, and demonstrated no change. By time of discharge she was conversant, and agreeable to rehabilitation. Physical Exam Narrative: EXAM NARRATIVE: General exam no apparent distress Cardiovascular regular rate and rhythm without murmur Lungs clear Abdomen is soft, positive bowel sounds Extremities no cyanosis clubbing or edema Neuro no obvious focal deficits Discharge Data Data Completed and Pending: Completed Studies During Hospitalization Category Date Time Status CT head wo con* 7 0450 Routine Cat Scan 06/16/19 08:[address] head wo con* 7 0450 Urgent Cat Scan 06/15/19 13:38 Completed XR chest 1V kwasi ble [id number] Urgent Exams 06/15/19 12:27 Completed XR wrist LT min 3 V* [id number] Stat Exams 06/15/19 14:49 Completed Pending at discharge Category Date Time Status Urine Culture Sta t Lab 06/15/19 16:15 Received Labs from last 24 hours 06/17/19 07:24 Sodium 134 L Potassium 3.7 Chloride 100 Carbon Dioxide 22 Anion Gap 15.7 BUN 27 H Creatinine 1.1 Glucose 102 Calculated Osmolal ity 275 L Calcium 10.3 Total Bilirubin 0.6 AST 40 ALT 22 Alkaline Phosphata se 125 Total Protein 7.0 Albumin 2.9 L Globulin 4.1 Vitals: Last Vital Signs Temp 98.3 F 06/17/19 11:45 Pulse 71 06/17/19 11:45 Resp 18 06/17/19 11:45 BP 120/62 06/17/19 11:45 Pulse Ox 98 06/17/19 11:45 Discharge Plan Discharge Patient Disposition: Xfer SNF Condition: Stable Prescriptions: New cefuroxime axetil 250 mg Tablet 500 mg PO BID Qty: 14 RF: 0 Discontinued furosemide 40 mg Tablet See Rx Instructions .ROUTE .COMPLEX RF: 0 metolazone 5 mg Tablet 5 mg PO DAILY PRN (Reason: UNKNOWN) RF: 0 Klor-Con M20 20 mEq Tablet,Er Particles/Crystals 20 meq PO BID RF: 0 Discharge Orders: Discharge Order (Routine); Ordered 06/17/19 Ordered By: Nolan Roque Other Ambulatory Orders: CT head wo con* [id number] (Routine) Timeframe: 2 Weeks Facility: [facility] - Location: [facility] Ordered By: Nolan Roque Referrals: Abner Seymour MD [Physician] - 2 weeks Discharge Diet: Cardiac Discharge Activity: Increase activity as tolerated Activity Restrictions/Additional Instructions: Fall precautions. Avoid anticoagulants, antiplatelets. Follow-up with neurosurgery in 2 weeks. Follow-up with primary care provider at care home facility [address] head noncontrast prior to neurosurgical follow-up in 2 weeks, report to Dr. Seymour. Discharge Attestations Time Spent in Discharge Care*: greater than 30 min Quality Metrics Clinical Quality Measures During this hospital stay, did patient experience: None Coding Level of Care Code Acute Costume Mistress for [facility] Fwd Diagnoses Subdural hematoma S06.5X9A Gait instability R26.81
[2019-06-17 13:52] VITALS: BP 120/62; PULSE 71; RESP 18; TEMP 36.8; O2SAT 98
[2019-06-17 14:51] LABS: Vitamin B12 384 pg/mL (232-1245)
== END 2019-06-17 14:52 | disposition skilled nursing facility (03) | DRG 83 ==
LOC: ER 16:10 → MEDSURG 16:11
PROVIDERS: Student in an Organized Health Care Education/Training Program; Admitting Provider Student in an Organized Health Care Education/Training Program; Emergency Provider Emergency Medicine; Visit Provider Internal Medicine
DX: S06.5X9A Traumatic subdural hemorrhage with loss of consciousness of unspecified duration, initial encounter (principal); N39.0 Urinary tract infection, site not specified; E87.1 Hypo-osmolality and hyponatremia; W19.XXXA Unspecified fall, initial encounter; R29.6 Repeated falls; I25.10 Atherosclerotic heart disease of native coronary artery without angina pectoris; M79.89 Other specified soft tissue disorders; F03.90 Unspecified dementia, unspecified severity, without behavioral disturbance, psychotic disturbance, mood disturbance, and anxiety; C61 Malignant neoplasm of prostate; I10 Essential (primary) hypertension; F17.210 Nicotine dependence, cigarettes, uncomplicated; I48.91 Unspecified atrial fibrillation; R63.4 Abnormal weight loss
CPT/HCPCS: 12345; 36415; 70450; 71045; 73110; 80053; 80061; 81001; 82607; 83036; 84443; 85025; 85610; 87086; 93005; 97110; 97116; 97162; 97166; 97530; 97535; 99283; J0696; J7030

== ENCOUNTER 2019-07-13 14:15 | Inpatient (IN) | payer MEDICARE, SELFPAY ==
[2019-07-13] VITALS (10 sets, daily range): BP systolic 94–124; BP diastolic 43–66; PULSE 56–134; RESP 14–20; TEMP 36.7–37.4; O2SAT 88–100; BMI 22.1
--- NOTE | 2019-07-13 14:32 | XR_ITS ---
WS: [id number] PORTABLE CHEST HISTORY: fever COMPARISON: 06/15/2019 Mild volume loss in the LEFT lung is similar to the prior study. No pneumonia. No pleural effusion or pneumothorax. Cardiac size: Normal. Mediastinum/Aorta: Mild atherosclerosis aorta. No osseous abnormality seen. XR/XR chest 1V portable [id number] IMPRESSION: Stable mild volume loss in the LEFT lung. No pneumonia.
--- NOTE | 2019-07-13 14:35 | ED_ITS ---
HPI - Fever General: Chief Complaint: Fever Stated Complaint: fever/poss uti Time Seen by Provider: 07/13/19 14:27 History of Present Illness: HPI Narrative: Patient is an 84-year-old male presenting from the [facility]. He comes in today with complaints of fever and cloudy urine. He also is noted to be a little bit confused from his baseline. Additionally he has a decubitus ulcer on the side of his scrotum. Patient denies any complaints. He was in the hospital at the end of May after a fall and a subdural hematoma. He has been in the [facility] since that time. Apparently the patient did actually come from home. It was my misunderstanding that he was from a [facility]. His home health nurse had called in its her contact information this in the chart. She had been concerned about him because of the cloudy urine and some confusion. She also noted increased drainage from a sore that he has on his scrotum. MD elicited complaint: fever and malaise Onset (ago): unknown Context: recent hospitalization (End of May) Associated symptoms: Reports no associated symptoms Review of Systems General: Reports: Other (Patient denies any complaints however I am not sure how reliable his history is.) PFSH ED PFSH: Medical History Acquired hypothyroidism COPD (chronic obstructive pulmonary disease) Disequilibrium Gait instability PT/OT evaluation and discharge to skilled care. 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 History of recent travel: No Current gender identity: Male Physical Exam Const: COMMON NORMALS: no acute distress, no limitations and alert GENERAL APPEARANCE: cooperative and comfortable NUTRITIONAL APPEARANCE: thin HENMT: HEAD & SCALP: normal to inspection FACE & SINUS: normal facial exam Eye: GENERAL EYE: appearance normal, both eyes and all related structures Neck/C-Spine: COMMON NORMALS: supple, no meningeal signs and no JVD Chest: COMMONS NORMALS: normal inspection of the chest Resp: COMMON NORMALS: normal respiratory effort, No use of accessory muscles and clear to auscultation bilaterally AUSCULTATION: clear to auscultation bilaterally Cardio: COMMON NORMALS: no JVD, regular rate, regular rhythm and No murmurs present (Cardio) RATE: regular rate RHYTHM: regular rhythm GI: COMMON NORMALS: Normal to inspection, nondistended, normoactive bowel sounds present, Soft to palpation and non-tender INSPECTION: Yes normal to inspection AUSCULTATION: Yes normoactive bowel sounds PALPATION: Yes Soft to palpation : BLADDER/KIDNEY EXAM: Yes catheter in place SCROTUM: Yes erythematous (The left side of the scrotum near the inguinal fold has a ulceration with tunneling. No obvious drainage and mild erythema surrounding.) Back/Pelvis: COMMON NORMALS: thoracic and lumbar spine normal to inspection Extremity: COMMON NORMALS: normal to inspection Neuro: COMMON NORMALS: moves all extremities, no focal motor deficits and no sensory deficits noted SENSORIUM/ORIENTATION: Yes alert MENINGEAL SIGNS: Yes no meningeal signs Psych: COMMON NORMALS: mental status grossly normal, cooperative and normal affect Skin: COMMON NORMALS: no rashes or lesions noted and turgor normal GENERAL SKIN EXAM: no rashes or lesions noted and turgor normal Course ED course: Patient has been alert and comfortable in the ER. He does provide history but I am not sure how accurate it is. His work-up shows an elevated white count, anemia that is somewhat worse than when he was in the hospital most recently. He also was noted to be in acute renal failure with a BUN of 113 and a creatinine of 4.0. This could be postobstructive as when the nurse in the ER removed his Brown and put a new one and he immediately put out 2000 mL's of urine. The UA is not obviously infected but given the clinical appearance of the urine I have covered him with Rocephin. The wound on his scrotum does not appear acutely infected but will need attention. Vital Signs: Vital signs: Vital Signs Temperature 98.5 F 07/13/19 18:04 Pulse Rate 60 07/13/19 18:04 Respiratory Rate 18 07/13/19 18:04 Blood Pressure 120/43 07/13/19 18:04 Pulse Oximetry 98 07/13/19 18:04 MDM - Fever Lab Data: Labs: Lab Results 07/13/19 07/13/19 07/13/19 Range/Units 14:46 14:49 15:21 WBC 15.7 H (4.0-10.0) 10^3/ uL RBC 2.81 L (4.1-5.3) 10^6/u L Hgb 8.6 L (11.7-16.6) g/dL Hct 26.8 L (42.0-52.0) % MCV 95.4 H (80-94) fL MCH 30.6 (28.0-34.0) pg MCHC 32.1 (30.0-36.0) g/dL RDW 18.0 H (12.1-15.1) % Plt Count 206 (130-400) 10^3/c mm MPV 11.5 H (7.4-10.4) fL Neut % (Auto) 83.7 % Lymph % (Auto) 7.1 % Mathews % (Auto) 8.6 % Eos % (Auto) 0.0 % Baso % (Auto) 0.2 % Neut # (Auto) 13.2 H (1.8-7.7) 10^3/u L Lymph # (Auto) 1.1 (0.8-4.8) 10^3/u L Mathews # (Auto) 1.4 H (0.2-0.9) 10^3/u L Eos # (Auto) 0.0 (0.0-0.8) 10^3/u L Baso # (Auto) 0.0 (0.0-0.1) 10^3/u L Nucleated RBC % (a uto) 0 % Nucleated RBCs # 0.0 /100WBC Sodium 131 L (136-145) mmol/L Potassium 4.5 (3.5-5.1) mmol/L Chloride 93 L (98-107) mmol/L Carbon Dioxide 23 (22-29) mmol/L Anion Gap 19.5 H (5-19) BUN 113 H* D (8-23) mg/dL Creatinine 4.0 H (0.7-1.2) mg/dL Glucose 185 H (65-115) mg/dL Calculated Osmolal ity 279 L (285-295) mOsm/k g Lactate 1.6 (0.5-2.2) mmol/L Calcium 11.1 H (8.5-10.5) mg/dL Total Bilirubin 0.2 (0.15-1.2) mg/dL AST 25 (0-40) U/L ALT 17 (0-41) U/L Alkaline Phosphata se 155 H (40-130) IU/L Total Protein 6.5 L (6.6-8.7) g/dL Albumin 2.5 L (3.5-5.2) g/dL Globulin 4.0 (1.3-4.6) g/dL Urine Color (Yellow) Urine Appearance (CLEAR) Urine pH (5-7) Ur Specific Gravit y (1.005-1.030) Urine Protein (Negative) Urine Glucose (UA) (Normal) Urine Ketones (Negative) Urine Blood (Negative) Urine Nitrate (Negative) Urine Bilirubin (NEGATIVE) Urine Urobilinogen (Negative) mg/dL Ur Leukocyte Sunita ase (Negative) Urine RBC (0-2) /hpf Urine WBC (0-5) /hpf Ur Squamous Epith Cells (0-5) Urine Bacteria (NONE) 05/25/20 Range/Units 15:22 WBC (4.0-10.0) 10^3/ uL RBC (4.1-5.3) 10^6/u L Hgb (11.7-16.6) g/dL Hct (42.0-52.0) % MCV (80-94) fL MCH (28.0-34.0) pg MCHC (30.0-36.0) g/dL RDW (12.1-15.1) % Plt Count (130-400) 10^3/c mm MPV (7.4-10.4) fL Neut % (Auto) % Lymph % (Auto) % Mathews % (Auto) % Eos % (Auto) % Baso % (Auto) % Neut # (Auto) (1.8-7.7) 10^3/u L Lymph # (Auto) (0.8-4.8) 10^3/u L Mathews # (Auto) (0.2-0.9) 10^3/u L Eos # (Auto) (0.0-0.8) 10^3/u L Baso # (Auto) (0.0-0.1) 10^3/u L Nucleated RBC % (a uto) % Nucleated RBCs # /100WBC Sodium (136-145) mmol/L Potassium (3.5-5.1) mmol/L Chloride (98-107) mmol/L Carbon Dioxide (22-29) mmol/L Anion Gap (5-19) BUN (8-23) mg/dL Creatinine (0.7-1.2) mg/dL Glucose (65-115) mg/dL Calculated Osmolal ity (285-295) mOsm/k g Lactate (0.5-2.2) mmol/L Calcium (8.5-10.5) mg/dL Total Bilirubin (0.15-1.2) mg/dL AST (0-40) U/L ALT (0-41) U/L Alkaline Phosphata se (40-130) IU/L Total Protein (6.6-8.7) g/dL Albumin (3.5-5.2) g/dL Globulin (1.3-4.6) g/dL Urine Color Straw (Yellow) Urine Appearance Cloudy (CLEAR) Urine pH 5 (5-7) Ur Specific Gravit y 1.005 (1.005-1.030) Urine Protein Neg (Negative) Urine Glucose (UA) Norm (Normal) Urine Ketones Negative (Negative) Urine Blood 3+ H (Negative) Urine Nitrate Negative (Negative) Urine Bilirubin Neg (NEGATIVE) Urine Urobilinogen Norm (Negative) mg/dL Ur Leukocyte Sunita ase 2+ H (Negative) Urine RBC 15-25 H (0-2) /hpf Urine WBC 25-40 H (0-5) /hpf Ur Squamous Epith Cells None (0-5) Urine Bacteria 4+ H (NONE) Discharge Plan Discharge Patient Disposition: Admitted As Inpatient Admit Provider: Elmira Toledo Condition: Good Discharge Date/Time: 07/13/19 18:26 Coding Level of Care Code ED Chicken Handler for Chg Fwd Exam Comprehensive
[2019-07-13] MEDS: sodium chloride 0.9% 500 ML 999 ML IV (14:55)
[2019-07-13 15:06] LABS: Basophils % 0.2 %; Hematocrit 26.8 % (42.0-52.0); Hemoglobin 8.6 g/dL (11.7-16.6); Lymphocytes # 1.1 10^3/uL (0.8-4.8); Lymphocytes % 7.1 %; Mean Corpuscular HGB Conc 32.1 g/dL (30.0-36.0); Mean Corpuscular Hemoglobin 30.6 pg (28.0-34.0); Mean Corpuscular Volume 95.4 fL (80-94); Mean Platelet Volume 11.5 fL (7.4-10.4); Monocytes # 1.4 10^3/uL (0.2-0.9); Monocytes % 8.6 %; Neutrophils # 13.2 10^3/uL (1.8-7.7); Neutrophils % 83.7 %; Nucleated Red Blood Cells % 0 %; Platelet Count 206 10^3/cmm (130-400); Red Blood Count 2.81 10^6/uL (4.1-5.3); White Blood Count 15.7 10^3/uL (4.0-10.0)
[2019-07-13 15:27] LABS: Lactate (Lactic Acid level) 1.6 mmol/L (0.5-2.2)
--- NOTE | 2019-07-13 15:42 | PC.NURSE ---
PLACED [facility] CATH, PT TOLERATED VERY WELL. OUT PUT 2000 CC. REST COMFORTABLY. NO ACUTE DISTRESS. CONTINUE TO MONITOR. FLUIDS INFUSING.
[2019-07-13 16:07] LABS: Add Urine Microscopic? YES; Bilirubin Urine Neg (NEGATIVE); Blood Urine 3+ (Negative); Glucose Urine UA Norm (Normal); Ketones Urine Negative (Negative); Leukocyte Esterase Urine 2+ (Negative); Nitrate Urine Negative (Negative); Protein Urine Neg (Negative); Specific Gravity, Urine 1.005 (1.005-1.030); Urine Appearance Cloudy (CLEAR); Urine Color Straw (Yellow); Urobilinogen Urine Norm (Negative); pH Urine 5 (5-7)
[2019-07-13 16:18] LABS: Bacteria Urine 4+; RBC Urine 15-25 /hpf (0-2)
[2019-07-13 16:19] LABS: Add Urine Culture? Yes; WBC Urine 25-40 /hpf (0-5)
--- NOTE | 2019-07-13 16:27 | PC.NURSE ---
EMPTY 1800 FROM [facility] CATH
[2019-07-13 17:01] LABS: Alanine Aminotransferase 17 U/L (0-41); Albumin Level 2.5 g/dL (3.5-5.2); Alkaline Phosphatase 155 IU/L (40-130); Anion Gap 19.5 (5-19); Aspartate Amino Transferase 25 U/L (0-40); Calcium 11.1 mg/dL (8.5-10.5); Carbon Dioxide 23 mmol/L (22-29); Chloride 93 mmol/L (98-107); Glucose 185 mg/dL (65-115); Potassium 4.5 mmol/L (3.5-5.1); Sodium 131 mmol/L (136-145); Total Bilirubin 0.2 mg/dL (0.15-1.2); Total Protein 6.5 g/dL (6.6-8.7)
[2019-07-13 17:10] LABS: Osmolality Calculated 279 mOsm/kg (285-295)
[2019-07-13 17:13] LABS: Blood Urea Nitrogen 113 mg/dL (8-23)
[2019-07-13] MEDS: cefTRIAXone 1,000 MG in sodium chloride 0.9% (plus) 50 ML 100 MG IV (17:15)
--- NOTE | 2019-07-13 17:27 | PC.NURSE ---
RESTING IN BED, REPOSITIONED FOR COMFORT, [facility] CATH PATENT. NO ACUTE DISTRESS
--- NOTE | 2019-07-13 17:39 | CTR_ITS ---
PROCEDURE INFORMATION: Exam: CT Head Without Contrast Exam date and time: 07/13/2019 5:59 PM Age: 84 years old Clinical indication: Screening exam; Additional info: Repeat from prior subdural TECHNIQUE: Imaging protocol: Computed tomography of the head without contrast. Radiation optimization: All CT scans at this facility use at least one of these dose optimization techniques: automated exposure control; mA and/or kV adjustment per patient size (includes targeted exams where dose is matched to clinical indication); or iterative reconstruction. COMPARISON: CT head wo con* [id number] 06/16/2019 7:45 AM FINDINGS: Small to moderate area of malacia/gliosis in left PAPER [employer]OD CUTTER territory is most compatible with old infarction. There is prominent low density in the bilateral periventricular white matter which may represent chronic small vessel ischemic disease in the appropriate clinical setting. The possibility of superimposed acute infarctions cannot be excluded; consider MRI brain (including diffusion images) for further assessment if clinically warranted and if patient has no contraindication to MRI. There are prominent intracranial arterial calcifications. Previously demonstrated right subdural hemorrhage is no longer demonstrated. There is mild to moderate cerebral cortical volume loss. Ventricles do not appear significantly dilated. No depressed calvarial fracture is demonstrated. Visualized paranasal sinuses and mastoid air cells demonstrate no significant opacification. CT/CT head wo con* [id number] IMPRESSION: Probable prominent chronic ischemic changes as discussed above. Total DLP: 1607.87 mGy-cm Radiation Dose CTDIVOL = (mGy): DLP = 1607.87 (mGy-cm)
--- NOTE | 2019-07-13 18:03 | PC.NURSE ---
REPORT GIVEN TO JUAN FOR ROOM 250-2. ANSWERED ALL QUESTIONS. PT STABLE AND READY TO BE MOVED
--- NOTE | 2019-07-13 18:46 | PM.HP ---
Providers/Chief Complaint Admitting Physician: Elmira Toledo MD Primary Care Provider: Prashant Powell MD Chief Complaint: fever/poss uti History of Present Illness Antonino Bardales is a 84 year old male with PMHx of CHF (unknown stage), Gout, COPD, CKD (unknown stage), Chronic normocytic anemia, recent subdural hematoma (R), Chronic smoker presents from home for evaluation of fever, altered mental status. Patient is encountered in the ER, lying on the stretcher, shivering and reports feeling cold, able to provide some history, collateral information obtained from review of medical record. He was admitted at our facility in May following frequent falls after which he sustained a small right subdural hematoma. He was to follow-up with CT scan in 2 weeks following discharge and neurosurgery evaluation. He was seen by Dr. Seymour during his hospital stay. He had been discharged to [facility] where he states he received therapy for about 14 days then was discharged home with home health services. He has had a Brown catheter in place though care is questionable in light of condition on his arrival in the ER. It has since been changed with noted output of about 3800 mL. Labs indicate leukocytosis with a white count of 15.7, anemia with a hemoglobin of 8.6, BUN of 113, creatinine of 4.0, hypercalcemia, hyperglycemia. Systolic blood pressure was initially in the 90s, has since received a 500 mL normal saline bolus with normalization in his hemodynamic status. He is afebrile. Urinalysis strongly indicative of infection with noted cloudy appearance, hematuria, leukocyte esterase, pyuria, bacteria. He has received a dose of ceftriaxone. I have referenced prior urine cultures which are contaminated and he had been discharged on a course of cefuroxime. I do not see follow-up CT scan since his previous hospital stay so I have requested repeat for reevaluation. Is currently afebrile, lactic acid is 1.6, not currently septic. He is noted to have some inguinal erythema which appears to be moisture related breakdown. Also has a linear incision overlying left scrotal area with some residual purulence from leaking Brown catheter. Area does not look erythematous, no active drainage from wound once surrounding purulence cleaned. Patient has been admitted for further antibiotic treatment, management of BRIANA. Spoke to his significant other Miesha Hart who reports that while visiting family patient had a fall and ended up going to [facility] ([place] where he was diagnosed with a fracture of the left arm. Currently has a dressing in place, no surgical intervention done. While he was hospitalized he had a Brown catheter placed which is the one that was changed upon his arrival to the ER today. She and patient's son are his primary caregivers, he has gotten to the point where he is completely dependent in his ADLs, was previously using a cane for ambulation but due to increasing unsteadiness has been using a walker with improved balance. During his hospital stay at [facility] he was noted to have increasing hydrocele with what sounds like an abscess that required incision and drainage. This explains the incision noted on the left scrotal area. He has had increasing drainage which has become malodorous over the past several days often soaking through his adult diapers. Significant other make sure to give him a bath at least once daily and empties his Brown catheter twice a day. He seems to have been doing fairly well with standby assistance and consistent use of walker. She confirms that he is not oxygen dependent at baseline but continues to be a chronic smoker, sometimes smokes up to a pack a day. She states that patient has assigned her and patient's son as her surrogate decision makers. Patient is a DO NOT RESUSCITATE/DO NOT INTUBATE. It seems that he has had decreasing quality of life particularly recently. His appetite has been fairly diminished, often having just 1 meal a day and admittedly snacking but his fluid intake has been much better. I updated her on patient's clinical status, need for admission for treatment of UTI and management of BRIANA. Answered questions to her satisfaction. Review of Systems Const: Reports: change in appetite (decreased appetite) and malaise; Denies: fever(s) or chills Eyes: Denies: change in vision ENMT: Reports: dry mouth Card: Denies: chest pain, swelling of feet/ankles or lightheadedness Resp: Denies: dyspnea, productive cough or non-productive cough GI: Denies: abdominal pain, nausea, vomiting, hematemesis or hematochezia : Reports: difficulty urinating and other (has chronic Brown catheter); Denies: dysuria Musc: Denies: back pain Skin/Breast: Reports: rash, non-healing lesions and surgical incision (L scrotal area, no surrounding erythema, no active drainage) Neuro: Reports: other (denies recent fall) Psych: Denies: anxiety Medications/Allergies Home Medications Medication Instructions Recorded Confirmed Last Taken Type allopurinol 300 mg tablet 300 mg PO QDAY 03/09/19 07/13/19 Unknown History budesonide-formoterol HFA 80 2 puff INHALATION BID 03/09/19 07/13/19 Unknown History mcg-4.5 mcg/actuation aerosol inhaler furosemide 40 mg tablet 40 mg PO BID 03/09/19 07/13/19 07/13/19 History silodosin 8 mg capsule 8 mg PO QDAY 03/09/19 07/13/19 07/12/19 History finasteride 1 mg tablet 1 mg PO QDAY 90 Days #90 tab 04/13/19 07/13/19 07/13/19 Rx potassium chloride 20 mEq 20 meq PO BID 30 Days #60 tab 05/19/19 07/13/19 07/13/19 Rx tablet,extended release colchicine 0.6 mg capsule 0.6 mg PO QDAY 90 Days #90 cap 06/11/19 07/13/19 07/13/19 Rx cefuroxime axetil 500 mg PO BID #14 tab 06/17/19 07/13/19 Unknown Rx ergocalciferol (vitamin D2) See Rx Instructions .ROUTE .COMPLEX 07/13/19 07/13/19 Unknown History metolazone 5 mg PO PRN PRN 07/13/19 07/13/19 07/13/19 History Allergies Allergy/AdvReac Type Severity Reaction Status Date / Time No Known Drug Allergies Allergy Unknown Verified 07/13/19 14:55 PFSH Acute PFSH: Medical History (Updated 07/13/19 @ 19:10 by Elmira Toledo MD) Acquired hypothyroidism Anemia, chronic disease CKD (chronic kidney disease) COPD (chronic obstructive pulmonary disease) Disequilibrium Gait instability PT/OT evaluation and discharge to skilled care. Gout Heart failure History of cataract right and left Hypertension Prostate cancer Spermatocele Surgical History (Updated 07/13/19 @ 18:51 by Elmira Toledo MD) S/P cataract extraction Family History Other CAD (coronary artery disease) Dementia Diabetes Social History Smoking and tobacco status: current every day smoker cigarettes [ Other cigarette details: smoked for decades, stopped for a decade, recently resumed occasional use ] Alcohol intake: current Alcohol intake frequency: 0-2 Drinks per Day Adopted: No Caregiver/support person: No Lives independently: Yes Household members: significant other Marital status: / 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 History of recent travel: No Current gender identity: Male Vitals/I&O/Wt Last Vital Signs Temp 98.5 F 07/13/19 18:04 Pulse 60 07/13/19 18:04 Resp 18 07/13/19 18:04 BP 120/43 07/13/19 18:04 Pulse Ox 98 07/13/19 18:04 07/13/19 07/13/19 07/13/19 06:59 14:59 22:59 Intake Total 550 / 550 Balance 550 / 550 Weight last 48 hrs Weight 78.018 kg Physical Exam Const: COMMON NORMALS: no acute distress and patient oriented x3 GENERAL APPEARANCE: cooperative, comfortable, disheveled and frail appearing ORIENTATION/CONSCIOUSNESS: Yes awake OTHER: -appears appropriate for age HENMT: COMMON NORMALS: normocephalic, atraumatic, hearing grossly normal bilaterally and moist oral mucous membranes HEAD & SCALP: normocephalic and atraumatic TEETH & GINGIVA: Yes dentures Eye: COMMON NORMALS: Equal, round and reactive pupils present, EOMs intact bilaterally and conjunctivae normal CONJUNCTIVA: Yes conjunctivae normal PUPIL: Yes Equal, round and reactive pupils present Neck/C-Spine: COMMON NORMALS: full ROM GENERAL: Yes normal visual inspection and Yes trachea midline Chest: CHEST: Yes Symmetrical chest wall rise Resp: COMMON NORMALS: normal respiratory effort, No retractions, No use of accessory muscles and clear to auscultation bilaterally EFFORT & INSPECTION: Yes able to speak in complete sentences, Yes symmetric chest movement and No tachypneic AUSCULTATION: clear to auscultation bilaterally Cardio: COMMON NORMALS: regular rate, regular rhythm, S1 normal heart sound present, S2 normal heart sound present and No murmurs present (Cardio) RATE: regular rate RHYTHM: regular rhythm HEART SOUNDS: S1 normal heart sound present and S2 normal heart sound present GI: COMMON NORMALS: Normal to inspection, nondistended, normoactive bowel sounds present, Soft to palpation and non-tender PALPATION: Yes Soft to palpation : BLADDER/KIDNEY EXAM: Yes catheter in place Catheter type (Male): urethral Extremity: COMMON NORMALS: normal to inspection, full ROM, no clubbing, cyanosis or edema and no pedal edema NARRATIVE EXTREMITY EXAM: LUE; in LEONEL wrap Neuro: COMMON NORMALS: patient oriented x3, moves all extremities, no focal motor deficits and no sensory deficits noted Psych: COMMON NORMALS: mental status grossly normal, Normal thought process present, cooperative, normal affect and speech normal APPEARANCE: Yes unkempt SPEECH: Yes normal speech THOUGHT PROCESS: Normal thought process present Skin: COMMON NORMALS: no rashes or lesions noted, no jaundice, no petechiae and no mottling NARRATIVE SKIN EXAM: -dried scab on anterior R leg GENERAL SKIN EXAM: no rashes or lesions noted Urinary Catheter Management^: Brown: Cath Placed During This Visit: yes Urethral Indwelling: Yes Reason for Continuing Indwelling Catheter: Chronic Indwelling Urinary Catheter on Admission (switched in ED) Urinary Catheter Date of Insertion: 07/13/19 Urinary Catheter Time of Insertion: 15:00 Data : 07/13/19 14:46 07/13/19 15:21 Micro: Microbiology 07/13/19 14:46 Blood Culture - Preliminary Blood SPECIMEN COLLECTED 07/13/19 14:49 Blood Culture - Preliminary Blood SPECIMEN COLLECTED A&P Assessment and plan (1) UTI (urinary tract infection): -UA indicative of infection with noted cloudy appearance, hematuria, positive leukocyte esterase, pyuria, bacteria -Noted leukocytosis with a white count of 15.7 with neutrophilic predominance, continue to trend WBC -Follow-up urine culture, blood culture -Does not appear septic at this time, lactic acid 1.6, afebrile, hemodynamically stable -Monitor vital signs -Stable dose of ceftriaxone, will continue this at this time -Was admitted at our facility in May for UTI, was treated with ceftriaxone at that time and discharged on a course of cefuroxime. Urine cultures were contaminated -Has had a Brown catheter in place, changed in ER with noted purulence, inguinal intertrigo; questionable Brown catheter care while at home. Had noted urinary output of 3800 mL Status: Acute Qualifiers: Urinary tract infection type: acute cystitis Hematuria presence: without hematuria Qualified Code(s): N30.00 - Acute cystitis without hematuria (2) Acute kidney injury superimposed on CKD: -Noted significant worsening of renal function acutely, suspect obstructive uropathy with degree of dehydration given poor oral intake -Has some degree of CKD at baseline, unknown stage -Baseline creatinine appears to be around 1.1 -On IV fluid hydration, has Brown catheter in place -Monitor renal function, avoid nephrotoxins, renally dose meds -Hold diuretics Status: Acute (3) Anemia, chronic disease: -Has acute on chronic normocytic anemia, baseline hemoglobin appears to be around 10 -Clinically has some pallor, hemodynamically stable -Order anemia panel -Transfuse if Hg < 7, acute bleeding, symptomatic Status: Acute (4) Subdural hematoma: -Noted to have small, mixed right subdural hematoma with maximal diameter of 3.6 mm, acute on subacute blood products. No significant midline shift or mass-effect. Order repeat CT scan -Has been evaluated by neurosurgery during previous admission with appropriate outpatient follow-up arranged -Neurochecks, fall precautions, avoid antiplatelet and anticoagulation therapy Status: Chronic (5) Spermatocele: -Has known history of large left spermatocele, asymptomatic -Has been following up with Dr. Brownlee Status: Chronic Additional A&P Information -Has documented history of CHF, unknown stage, no baseline echo, is on diuresis with Lasix and metolazone both of which will be on hold secondary to renal impairment. Order baseline echo particularly due to need for IV fluid hydration -Advanced age, clinically quite frail appearing, appears malnourished, suspect at least moderate protein calorie malnutrition; BMI-22 kg/m2 -Gout, no acute flare, hold allopurinol and colchicine due to renal function -Documented history of chronic smoking, monitor respiratory status, supplemental oxygen as needed, neb treatments as needed -Physical deconditioning, high fall risk; fall precautions, PT evaluation in a.m., up with assist. Has been ambulating with walker -Recent LUE fracture; has dressing in place. Request records from recent hospitalization at [facility] in [place] -Chronic smoker; 1 PPD; nicotine replacement therapy -Cardiac diet as tolerated -DVT ppx with SCDs, no anticoagulation due to noted anemia -Dispo: home, has services; lives with SO (Miesha) and son -Code status: DNR/DNI Attestations Medical Necessity Statement*: Antonino F Bardales's hospital stay will require greater than 2 midnights for management of complicated UTI, acute kidney injury requiring IV antibiotics and IV fluid hydration with close monitoring of renal function. Time Spent in Patient Care: Greater than 35 minutes (>than 50% of time spent in counselling and/or direct pt care on unit). Coding Level of Care Code Acute Hotel Or Motel Receptionist for Chg Fwd Diagnoses UTI (urinary tract infection) N30.00 Urinary tract infection type: acute cystitis Hematuria presence: without hematuria Acute kidney injury superimposed on CKD N17.9; N18.9 Anemia, chronic disease D63.8 Subdural hematoma S06.5X9A Spermatocele N43.40
[2019-07-13] MEDS: sodium chloride 0.9% 1,000 ML 75 ML IV (19:06)
[2019-07-13 19:45] LABS: NT Pro B Type Natriuretic Pept 4988 pg/mL (0-450)
[2019-07-13] MEDS: finasteride 5 mg Tablet PO (20:55)
[2019-07-13] MEDS: nicotine 14 mg Patch 1 PATCH TRANSDERMA (20:55)
[2019-07-14] VITALS (9 sets, daily range): BP systolic 86–101; BP diastolic 40–56; PULSE 47–73; RESP 16–19; TEMP 36.6–36.7; O2SAT 94–96
[2019-07-14] MEDS: sodium chloride 0.9% 500 ML IV ×2 (04:39→06:14)
[2019-07-14 05:03] LABS: Basophils % 0.1 %; Eosinophils % 0.1 %; Hematocrit 24.4 % (42.0-52.0); Hemoglobin 8.1 g/dL (11.7-16.6); Lymphocytes # 0.8 10^3/uL (0.8-4.8); Lymphocytes % 8.6 %; Mean Corpuscular HGB Conc 33.2 g/dL (30.0-36.0); Mean Corpuscular Hemoglobin 31.6 pg (28.0-34.0); Mean Corpuscular Volume 95.3 fL (80-94); Mean Platelet Volume 10.8 fL (7.4-10.4); Monocytes # 1.2 10^3/uL (0.2-0.9); Monocytes % 12.1 %; Neutrophils # 7.6 10^3/uL (1.8-7.7); Neutrophils % 78.8 %; Nucleated Red Blood Cells % 0 %; Platelet Count 192 10^3/cmm (130-400); Red Blood Count 2.56 10^6/uL (4.1-5.3); Red Cell Distribution Width 17.9 % (12.1-15.1); White Blood Count 9.7 10^3/uL (4.0-10.0)
[2019-07-14 05:26] LABS: Ferritin 112 ng/mL (30-400); Iron 8 ug/dL (59-158)
[2019-07-14 05:29] LABS: Anion Gap 17.7 (5-19); Calcium 10.1 mg/dL (8.5-10.5); Carbon Dioxide 26 mmol/L (22-29); Chloride 97 mmol/L (98-107); Glucose 121 mg/dL (65-115); Osmolality Calculated 286 mOsm/kg (285-295); Potassium 3.7 mmol/L (3.5-5.1); Sodium 137 mmol/L (136-145)
[2019-07-14 05:37] LABS: Blood Urea Nitrogen 99 mg/dL (8-23)
--- NOTE | 2019-07-14 06:00 | PC.NURSE ---
Shift Summary. Pt was lethargic most of the evening would wake by stimulation. Hypotension blood pressure and received 500 ml bolus over hour. His blood pressure is still 86/56. Will notified dr. Pt had appropriate urine output. Denies any pain.
--- NOTE | 2019-07-14 07:00 | USCV_ITS ---
Antonino Bardales Age: 84 Gender: M : 1935 Exam Date: 07/14/2019 06:18 Ordering Phys: Elmira Toledo MD Technologist: Terence Caceres Exam Location: [facility] [place] Indication: CHEST PAIN BP: 87 / 47 HR: Rhythm: Sinus Technical Quality: NO GOOD WINDOWS MEASUREMENTS (Male / Female) Normal Values 2D ECHO LA Diameter 5.4 cm M-MODE LV Diastolic Diameter MM 5.4 cm 4.2 - 5.9 / 3.9 - 5.3 cm LV Systolic Diameter MM 3.1 cm LV Ejection Fraction MM Teich 73.7 % IVS Diastolic Thickness MM 1.2 cm 0.6 - 1.0 / 0.6 - 0.9 cm IVS Systolic Thickness MM 1.7 cm LVPW Diastolic Thickness MM 1.5 cm 0.6 - 1.0 / 0.6 - 0.9 cm LVPW Systolic Thickness MM 2.4 cm RV Diastolic Diameter MM 1.9 cm Aortic Annulus Diameter 4.8 cm LA Ao Ratio MM 1.1 MV E Point Septal Separation 1.4 cm DOPPLER AV Peak Velocity 221.0 cm/s MV Area PHT 3.9 cm squared Mitral E to A Ratio 1.6 MV E' Velocity 57.0 cm/s FINDINGS Left Ventricle Probably normal left ventricular size and systolic function. This study is inadequate for estimation of regional wall motion abnormality. Right Ventricle Probably normal right ventricle size and systolic function. Right Atrium Normal right atrial size. Right atrial pressure estimated at 3 mmHg. Left Atrium Left atrium not well visualized. Probably moderately increased left atrial size. Mitral Valve Mitral valve not well visualized. Trace mitral valve regurgitation. Aortic Valve Structurally normal trileaflet aortic valve. Tricuspid Valve Structurally normal tricuspid valve. Trace tricuspid valve regurgitation. Pulmonic Valve Structurally normal pulmonic valve. Trace pulmonary valve regurgitation. Pericardium No pericardial effusion. Aorta Aorta not well visualized. CONCLUSIONS 1. This is a technically very difficult study with poor parasternal and apical windows. 2. Probably normal left ventricular size and systolic function. 3. Probably moderately increased left atrial size. 4. No prior similar studies to compare. Eliane Thayer MD (Electronically Signed) Final Date: 14 Jul 2019 14:42 S
[2019-07-14] MEDS: sodium chloride 0.9% 1,000 ML 75 ML IV (07:28)
--- NOTE | 2019-07-14 08:04 | P.PN_ITS ---
Subjective Subjective: Interval history: Noted improved renal function, had 20 to 50 mL urine output overnight, slight drop in hemoglobin from 8.6->8.1, low iron so we will start on IV iron replacement therapy. Noted to be hypotensive and received 2 x 500 mL normal saline boluses. Blood pressure slightly improved this morning, most recent is 101/40. Afebrile, heart rate wnl. Patient resting comfortably in bed, states that he would like to go home today, explained need for continued IV fluid hydration, IV antibiotics, urine cultures pending. He verbalizes understanding of this but still insists on going home. Explained that this would be AGAINST MEDICAL ADVICE which he understands. Spoke to his significant other Miesha Hart and she agrees to pick him up though she would like him to stay but understands that he is insistent on returning home. She requests continued home health services. Medications: Reviewed: Yes Medication Review Details: Active Medications Generic Name Dose Route Start Last Admin Trade Name Freq PRN Reason Stop Dose Admin Acetaminophen 650 mg 07/13/19 18:50 Tylenol PO Q6H PRN Mild/Mod Pain Or Temp >/= 101 Albuterol/Ipratrop ium 3 ml 07/13/19 19:07 Duoneb INHALATION Q6H.RESPIRATORY P RN SHORTNESS OF RANDEE TH Finasteride 5 mg 07/13/19 21:00 07/13/19 20:55 Proscar PO 5 mg BEDTIME JANUSZ Administration Sodium Chloride 1,000 mls @ 75 ml s/hr 07/13/19 18:50 07/14/19 07:28 Sodium Chloride 0.9% IV 75 mls/hr .[id number] JANUSZ Administration Ceftriaxone Sodium 1,000 mg/ 50 mls @ 100 mls/ hr 07/14/19 17:00 Sodium Chloride IV Q24H JANUSZ Protocol Iron Sucrose 200 m g/ Sodium 110 mls @ 220 mls /hr 07/14/19 08:15 Chloride IV 07/18/19 08:44 Q24H JANUSZ Metoprolol Tartrat e 2.5 mg 07/13/19 19:44 Metoprolol Tartr ate IV Q4H PRN HEART RATE-HIGH Nicotine 1 patch 07/13/19 19:35 07/13/19 20:55 Nicoderm 14 Mg P atch TRANSDERMA 1 patch DAILY JANUSZ Administration Nystatin 1 applic 07/14/19 09:00 Nystatin Powder TOPICAL BID JANUSZ Ondansetron HCl 4 mg 07/13/19 18:50 Zofran IVP Q8H PRN vomiting, or N/V if npo Tamsulosin HCl 0.4 mg 07/14/19 09:00 Flomax PO DAILY JANUSZ No Known Drug Allergies Allergy (Verified 07/13/19 14:55) Unknown Vitals/I&O/Wt Last Vital Signs Temp 97.8 F 07/14/19 07:11 Pulse 68 07/14/19 07:45 Resp 16 07/14/19 07:45 BP 101/40 07/14/19 08:04 Pulse Ox 96 07/14/19 07:45 07/13/19 07/14/19 07/14/19 22:59 06:59 14:59 Intake Total 550 / 550 745.00 / 1295.00 0 / 0 Output Total 2250 / 2250 Balance 550 / 550 -1505.00 / -955.00 0 / 0 Weight last 48 hrs Weight 70.261 kg Weight 78.018 kg Physical Exam Const: COMMON NORMALS: no acute distress and patient oriented x3 GENERAL APPEARANCE: cooperative, comfortable, disheveled and frail appearing ORIENTATION/CONSCIOUSNESS: Yes awake OTHER: -appears appropriate for age HENMT: COMMON NORMALS: normocephalic, atraumatic, hearing grossly normal bilaterally and moist oral mucous membranes HEAD & SCALP: normocephalic and atraumatic TEETH & GINGIVA: Yes dentures Eye: COMMON NORMALS: Equal, round and reactive pupils present, EOMs intact bilaterally and conjunctivae normal CONJUNCTIVA: Yes conjunctivae normal PUPIL: Yes Equal, round and reactive pupils present Neck/C-Spine: COMMON NORMALS: full ROM GENERAL: Yes normal visual inspec tion and Yes trachea midline Chest: CHEST: Yes Symmetrical chest wall rise Resp: COMMON NORMALS: normal respiratory effort, No retractions, No use of accessory muscles and clear to auscultation bilaterally EFFORT & INSPECTION: Yes able to speak in complete sentences, Yes symmetric chest movement and No tachypneic AUSCULTATION: clear to auscultation bilaterally Cardio: COMMON NORMALS: regular rate, regular rhythm, S1 normal heart sound present, S2 normal heart sound present and No murmurs present (Cardio) RATE: regular rate RHYTHM: regular rhythm HEART SOUNDS: S1 normal heart sound present and S2 normal heart sound present GI: COMMON NORMALS: Normal to inspection, nondistended, normoactive bowel sounds present, Soft to palpation and non-tender PALPATION: Yes Soft to pa lpation : BLADDER/KIDNEY EXAM: Yes catheter in place Extremity: COMMON NORMALS: normal to inspection, full ROM, no clubbing, cyanosis or edema and no pedal edema NARRATIVE EXTREMITY EXAM: LUE; in LEONEL wrap Neuro: COMMON NORMALS: patient oriented x3, moves all extremities, no focal motor deficits and no sensory deficits noted Psych: COMMON NORMALS: mental status grossly normal, Normal thought process present, cooperative, normal affect and speech normal APPEARANCE: Yes unkempt SPEECH: Yes normal speech THOUGHT PROCESS: Normal thought process present Skin: COMMON NORMALS: no rashes or lesions noted, no jaundice, no petechiae and no mottling NARRATIVE SKIN EXAM: -dried scab on anterior R leg GENERAL SKIN EXAM: no rashes or lesions noted Urinary Catheter Management^: Brown: Cath Placed During This Visit: yes Urethral Indwelling: Yes Reason for Continuing Indwelling Catheter: Chronic Indwelling Urinary Catheter on Admission (switched in ED) Urinary Catheter Date of Insertion: 07/13/19 Urinary Catheter Time of Insertion: 15:00 Data : 07/14/19 12:38 07/14/19 04:25 Micro: Microbiology 07/13/19 14:46 Blood Culture - Preliminary Blood SPECIMEN COLLECTED 07/13/19 14:49 Blood Culture - Preliminary Blood SPECIMEN COLLECTED A&P Assessment and plan (1) UTI (urinary tract infection): -UA indicative of infection with noted cloudy appearance, hematuria, positive leukocyte esterase, pyuria, bacteria -Noted leukocytosis with a white count of 15.7 with neutrophilic predominance now resolved -Follow-up urine culture, blood culture -not septic at time of admission, lactic acid 1.6, afebrile, hemodynamically stable. Noted to be hypotensive overnight, remains afebrile and otherwise hemodynamically stable -continue to monitor vital signs -continue ceftriaxone -Was admitted at our facility in May for UTI, was treated with ceftriaxone at that time and discharged on a course of cefuroxime. Urine cultures were contaminated -Has had a Brown catheter in place, changed in ER with noted purulence, inguinal intertrigo; questionable Brown catheter care while at home. Had noted urinary output of 3800 mL following catheter exchange Status: Acute Qualifiers: Hematuria presence: without hematuria Urinary tract infection type: acute cystitis Qualified Code(s): N30.00 - Acute cystitis without hematuria (2) Acute kidney injury superimposed on CKD: -Noted significant worsening of renal function acutely, suspect obstructive uropathy with degree of dehydration given poor oral intake -Has some degree of CKD at baseline, unknown stage -Baseline creatinine appears to be around 1.1 -On IV fluid hydration, has Brown catheter in place -continue to monitor renal function, avoid nephrotoxins, renally dose meds -Hold diuretics Status: Acute (3) Anemia, chronic disease: -Has acute on chronic normocytic anemia, baseline hemoglobin appears to be around 10 -Clinically has some pallor, hemodynamically stable though was hypotensive overnight, responded to IVF -noted iron panel reflecting iron deficiency, start on IV iron replacement given continued drop in Hg and hypotension -Transfuse if Hg < 7, acute bleeding, symptomatic Status: Acute (4) Subdural hematoma: -Noted to have small, mixed right subdural hematoma with maximal diameter of 3.6 mm, acute on subacute blood products. No significant midline shift or mass-effect. 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 Brownlee Status: Chronic Additional A&P Information -Has documented history of Chronic HFpEF, no baseline echo on our records, is on diuresis with Lasix and metolazone both of which will be on hold secondary to renal impairment. Order baseline echo particularly due to need for IV fluid hydration and hypotension. Echo done at [facility] (06/25/19) shows ejection fraction of 63%, severe biatrial enlargement, no significant valvular abnormalities -Advanced age, clinically quite frail appearing, appears malnourished, suspect at least moderate protein calorie malnutrition; BMI-20 kg/m2. Added Ensure to meals -Gout, no acute flare, hold allopurinol and colchicine due to renal function -Documented history of chronic smoking, continue to monitor respiratory status, supplemental oxygen as needed, neb treatments as needed -Physical deconditioning, high fall risk; fall precautions, PT evaluation in a.m., up with assist. Has been ambulating with walker -Recent LUE fracture; has dressing in place. Per records from recent hospitalization at [facility] in [place] had mildly displaced distal ulnar diaphyseal fracture, possible acute non-displaced radial styloid fracture; repeat x-ray shows oblique fracture without significant displacement of the distal ulna diaphysis. Will need outpatient orthopedics follow-up -Chronic smoker; 1 PPD; nicotine replacement therapy -recent I & D of left scrotal abscess (06/25/19) at [facility] with evacuation of large L hemiscrotal clot, no purulence. Packing and wound care as needed, has had a significant amount of malodorous drainage -Cardiac diet as tolerated -DVT ppx with SCDs, no anticoagulation due to noted anemia -Dispo: home, has services ([facility]); lives with SO (Miesha) and son. -Code status: DNR/DNI Attestations Medical Necessity Statement*: Patient requires hospitalization for continued treatment of UTI, acute kidney injury, anemia; on IV antibiotics, IV fluid hydration and IV iron replacement; pending culture results. Patient has decided to leave A. Time Spent in Patient Care: 16 - 35 minutes Coding Level of Care Code Acute Investigation Manager for g Fwd Exam Comprehensive Diagnoses UTI (urinary tract infection) N30.00 Hematuria presence: without hematuria Urinary tract infection type: acute cystitis Acute kidney injury superimposed on CKD N17.9; N18.9 Anemia, chronic disease D63.8 Subdural hematoma S06.5X9A Spermatocele N43.40
--- NOTE | 2019-07-14 08:14 | XR_ITS ---
WS: [id number] LEFT FOREARM 2 VIEWS HISTORY: recent fall, reported fracture COMPARISON: 06/15/2019 Osteopenia. Oblique fracture of the distal third of the ulna. This fracture was probably present on t he prior study but better seen today due to slight displacement. Degenerative changes at the radiocar pal joint. No foreign body or joint effusion. XR/XR forearm LT 2V [id number] IMPRESSION: Oblique fracture without significant displacement distal ulnar diaphysis. Proba laine present on the prior study also but better seen today due to slight displac ement.
[2019-07-14] MEDS: nicotine 14 mg Patch 1 PATCH TRANSDERMA (09:26)
[2019-07-14] MEDS: iron sucrose 200 MG in sodium chloride 0.9% (100 ml) 100 ML 220 MG IV (09:26)
[2019-07-14] MEDS: tamsulosin 0.4 mg Capsule PO (09:26)
[2019-07-14] MEDS: nystatin powder 15 gm Btl 1 APPLIC TOPICAL (09:51)
--- NOTE | 2019-07-14 13:23 | PC.NURSE ---
ROunding note. Per Dr. Toledo, patient is requesting to go home AMA. SHe states that he is of sound mind and able to make that decision. I have called Miesha, the Life Partner/butcher apprentice Who states she will be to get him in a few hours. She wishes that he would stay and has concerns of the patient becoming worse . I explained that the patient was able to make his own decision. She agreed. She asked that the physician write script upon d/c for medication for agitation at home and restart [facility] order, more frequently if possible. Dr. Toledo agreed. SIDDHARTHAW, PUBLICATIONS EDITOR
[2019-07-14 13:34] LABS: Hematocrit 25.8 % (42.0-52.0); Hemoglobin 8.2 g/dL (11.7-16.6)
--- NOTE | 2019-07-14 13:57 | PM.DCS ---
Discharge Providers Date of Admission: 07/13/19 17:27 Date of Discharge: July 14, 2019 Attending Provider at Admission: Elmira Toledo MD Attending Provider at Discharge: Elmira Toledo MD Primary Care Provider: Prashant Powell MD Diagnoses at Discharge Discharge Diagnosis (1) UTI (urinary tract infection): Status: Acute Problem details: -UA indicative of infection with noted cloudy appearance, hematuria, positive leukocyte esterase, pyuria, bacteria -Noted leukocytosis with a white count of 15.7 with neutrophilic predominance now resolved -urine culture: GNRs, pending ID & sensitivity -blood culture: 2/4 bottles positive for GNRs in 2 sets; repeat set ordered -not septic at time of admission, lactic acid 1.6, afebrile, hemodynamically stable. Noted to be hypotensive overnight, remains afebrile and otherwise hemodynamically stable -continue to monitor vital signs -continue ceftriaxone -Was admitted at our facility in May for UTI, was treated with ceftriaxone at that time and discharged on a course of cefuroxime. Urine cultures were contaminated -Has had a Brown catheter in place, changed in ER with noted purulence, inguinal intertrigo; questionable Brown catheter care while at home. Had noted urinary output of 3800 mL following catheter exchange Qualifiers: Urinary tract infection type: acute cystitis Hematuria presence: without hematuria Qualified Code(s): N30.00 - Acute cystitis without hematuria (2) Acute kidney injury superimposed on CKD: Status: Acute Problem details: -Noted significant worsening of renal function acutely, suspect obstructive uropathy with degree of dehydration given poor oral intake -Has some degree of CKD at baseline, unknown stage -Baseline creatinine appears to be around 1.1 -On IV fluid hydration, has Brown catheter in place -continue to monitor renal function, avoid nephrotoxins, renally dose meds -Hold diuretics (3) Anemia, chronic disease: Status: Acute Problem details: -Has acute on chronic normocytic anemia, baseline hemoglobin appears to be around 10 -Clinically has some pallor, hemodynamically stable though was hypotensive overnight, responded to IVF -noted iron panel reflecting iron deficiency, start on IV iron replacement given continued drop in Hg and hypotension -Transfuse if Hg < 7, acute bleeding, symptomatic (4) Subdural hematoma: Status: Chronic Problem details: -Noted to have small, mixed right subdural hematoma with maximal diameter of 3.6 mm, acute on subacute blood products. No significant midline shift or mass-effect. 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 Brownlee Other Information Additional DC diagnoses/information: -Has documented history of Chronic HFpEF, no baseline echo on our records, is on diuresis with Lasix and metolazone both of which will be on hold secondary to renal impairment. Order baseline echo particularly due to need for IV fluid hydration and hypotension. Echo done at [facility] (06/25/19) shows ejection fraction of 63%, severe biatrial enlargement, mild to moderate TR, -Advanced age, clinically quite frail appearing, appears malnourished, suspect at least moderate protein calorie malnutrition; BMI-20 kg/m2. Added Ensure to meals -Gout, no acute flare, hold allopurinol and colchicine due to renal function -Documented history of chronic smoking, continue to monitor respiratory status, supplemental oxygen as needed, neb treatments as needed -Physical deconditioning, high fall risk; fall precautions, PT evaluation in a.m., up with assist. Has been ambulating with walker -Recent LUE fracture; has dressing in place. Per records from recent hospitalization at [facility] in [place] had mildly displaced distal ulnar diaphyseal fracture, possible acute non-displaced radial styloid fracture; repeat x-ray shows oblique fracture without significant displacement of the distal ulna diaphysis. Will need outpatient orthopedics follow-up -Chronic smoker; 1 PPD; nicotine replacement therapy -recent I & D of left scrotal abscess (06/25/19) at [facility] with evacuation of large L hemiscrotal clot, no purulence. Packing and wound care as needed, has had a significant amount of malodorous drainage. Wound cx-moderate mixed cutaneous bridgett, biopsy showed necrotic tissue with separative inflammation stated inflammation and granulation tissue formation, organizing blood clot. Blood and urine cultures were both negative -Gram negative bacteremia secondary to complicated UTI; as noted above Reason for Visit Reason for Visit: Reason For Visit: fever/poss uti Hospital Course Hospital Course: Patient was admitted to the medical surgical floor and continued on IV fluid hydration, IV antibiotics secondary to complicated UTI. Brown catheter which he has chronically was changed in the ER upon his arrival with noted thick purulent-looking urine. Following exchange of catheter he has had very good urinary output. With initiation of antibiotic treatment he has had resolution in leukocytosis, has been afebrile. He was noted to have low pressures this morning which responded to IVF boluses. He was noted to be anemic with hemoglobin holding in the 8-9 range though baseline appears to be around 10. His iron levels are very low also has been started on IV iron replacement. He has a recent history of a small right subdural hematoma with repeat CT scan showing resolution. Echo had been ordered in light of documented history of chronic heart failure and hypotension. However I had requested medical records from his recent hospitalization at [facility] in [place] which shows a recent echo, ejection fraction of 63% and severe biatrial enlargement, no significant valvular abnormalities. While hospitalized there he also had incision and drainage of a left scrotal abscess which appeared to be secondary to a large clot that was evacuated. He had been advised to follow-up with urology and he does have an open incision over the left scrotal area that will need continued wound care including packing. He was noted to have significant worsening of his renal function likely secondary to dehydration and obstructive uropathy. As already noted above he has had excellent urine output and he has been noted improvement in his creatinine following initiation of treatment for UTI. Patient reports feeling better and is insistent on going home today. I explained need for continued hospitalization including IV fluid hydration, IV antibiotics, monitoring of hemoglobin and renal function all of which he understands but still wishes to return home today. I have spoken with his significant other Miesha Hart who is his primary caregiver and explained all of the above. Ideally she agrees that patient should continue to receive medical treatment but understands patient's insistence on returning home. Urine cultures so far have grown gram-negative rods and initial blood cultures are growing gram-negative rods in 2 out of 4 bottles in both sets. I have ordered repeat blood cultures. Patient will be discharged on antibiotic treatment pending culture result availability which I will follow-up on. Patient was noted to have LEONEL wrap on his left upper extremity due to recent fracture secondary to fall. X-ray confirms non-displaced distal ulna fracture. Patient is very high risk for poor outcome including worsening bacteremia, UTI, worsening renal function, hypotension and even . He is also at very high risk for readmission given his advanced age, medical comorbidities and aforementioned diagnoses. From conversation with family it seems that patient has expressed desire to not seek aggressive care and is likely a candidate for hospice which I encouraged family to consider. He is to continue home health services. Discharge Summary: -Patient to follow-up with primary care physician within 1 week. He will need referral to orthopedics to follow-up on left upper extremity fracture -Patient to follow-up with Dr. Brownlee in 7 to 10 days Physical Exam Const: COMMON NORMALS: no acute distress and patient oriented x3 GENERAL APPEARANCE: cooperative, comfortable, disheveled and frail appearing ORIENTATION/CONSCIOUSNESS: Yes awake OTHER: -appears appropriate for age HENMT: COMMON NORMALS: normocephalic, atraumatic, hearing grossly normal bilaterally and moist oral mucous membranes HEAD & SCALP: normocephalic and atraumatic TEETH & GINGIVA: Yes dentures Eye: COMMON NORMALS: Equal, round and reactive pupils present, EOMs intact bilaterally and conjunctivae normal CONJUNCTIVA: Yes conjunctivae normal PUPIL: Yes Equal, round and reactive pupils present Neck/C-Spine: COMMON NORMALS: full ROM GENERAL: Yes normal visual inspection and Yes trachea midline Chest: CHEST: Yes Symmetrical chest wall rise Resp: COMMON NORMALS: normal respiratory effort, No retractions, No use of accessory muscles and clear to auscultation bilaterally EFFORT & INSPECTION: Yes able to speak in complete sentences, Yes symmetric chest movement and No tachypneic AUSCULTATION: clear to auscultation bilaterally Cardio: COMMON NORMALS: regular rate, regular rhythm, S1 normal heart sound present, S2 normal heart sound present and No murmurs present (Cardio) RATE: regular rate RHYTHM: regular rhythm HEART SOUNDS: S1 normal heart sound present and S2 normal heart sound present GI: COMMON NORMALS: Normal to inspection, nondistended, normoactive bowel sounds present, Soft to palpation and non-tender PALPATION: Yes Soft to palpation : BLADDER/KIDNEY EXAM: Yes catheter in place Extremity: COMMON NORMALS: normal to inspection, full ROM, no clubbing, cyanosis or edema and no pedal edema NARRATIVE EXTREMITY EXAM: LUE; in LEONEL wrap Neuro: COMMON NORMALS: patient oriented x3, moves all extremities, no focal motor deficits and no sensory deficits noted Psych: COMMON NORMALS: mental status grossly normal, Normal thought process present, cooperative, normal affect and speech normal APPEARANCE: Yes unkempt SPEECH: Yes normal speech THOUGHT PROCESS: Normal thought process present Skin: COMMON NORMALS: no rashes or lesions noted, no jaundice, no petechiae and no mottling NARRATIVE SKIN EXAM: -dried scab on anterior R leg GENERAL SKIN EXAM: no rashes or lesions noted Urinary Catheter Management^: Brown: Cath Placed During This Visit: yes Urethral Indwelling: Yes Reason for Continuing Indwelling Catheter: Chronic Indwelling Urinary Catheter on Admission (switched in ED) Urinary Catheter Date of Insertion: 07/13/19 Urinary Catheter Time of Insertion: 15:00 Discharge Data Data Completed and Pending: Completed Studies During Hospitalization Category Date Time Status CT head wo con* 7 0450 Stat Cat Scan 07/13/19 17:39 Completed XR chest 1V kwasi ble [id number] Stat Exams 07/13/19 14:32 Completed XR forearm LT 2V [id number] Routine Exams 07/14/19 08:14 Completed Pending at discharge Category Date Time Status Basic Metabolic P conchita AM LABS Lab 07/15/19 04:00 Ordered Blood Culture Sta t Lab 07/13/19 14:46 Results Complete Blood Co unt w/Auto AM LABS Lab 07/15/19 04:00 Ordered Complete Blood Co unt w/Auto AM LABS Lab 07/16/19 04:00 Ordered Hemoglobin and He matocrit AM LABS Lab 07/15/19 04:00 Ordered Immunochemical Fe chichi OCB Routine Lab 07/13/19 19:07 Uncollected Urine Culture Sta t Lab 07/13/19 15:22 Results CV echo complete* [id number] Routine Ultrasound 07/14/19 07:00 Taken Labs from last 24 hours 07/14/19 07/14/19 07/14/19 12:38 04:25 04:25 WBC RBC Hgb 8.2 L Hct 25.8 L MCV MCH MCHC RDW Plt Count MPV Neut % (Auto) Lymph % (Auto) Appling % (Auto) Eos % (Auto) Baso % (Auto) Neut # (Auto) Lymph # (Auto) Appling # (Auto) Eos # (Auto) Baso # (Auto) Nucleated RBC % (a uto) Nucleated RBCs # Sodium 137 Potassium 3.7 Chloride 97 L Carbon Dioxide 26 Anion Gap 17.7 BUN 99 H* Creatinine 3.0 H Glucose 121 H Calculated Osmolal ity 286 Lactate Calcium 10.1 Iron 8 L Ferritin 112 Total Bilirubin AST ALT Alkaline Phosphata se NT-Pro-B Natriuret Pep Total Protein Albumin Globulin Urine Color Urine Appearance Urine pH Ur Specific Gravit y Urine Protein Urine Glucose (UA) Urine Ketones Urine Blood Urine Nitrate Urine Bilirubin Urine Urobilinogen Ur Leukocyte Sunita ase Urine RBC Urine WBC Ur Squamous Epith Cells Urine Bacteria 07/14/19 07/13/19 07/13/19 04:25 15:22 15:21 WBC 9.7 RBC 2.56 L Hgb 8.1 L Hct 24.4 L MCV 95.3 H MCH 31.6 MCHC 33.2 RDW 17.9 H Plt Count 192 MPV 10.8 H Neut % (Auto) 78.8 Lymph % (Auto) 8.6 Appling % (Auto) 12.1 Eos % (Auto) 0.1 Baso % (Auto) 0.1 Neut # (Auto) 7.6 Lymph # (Auto) 0.8 Appling # (Auto) 1.2 H Eos # (Auto) 0.0 Baso # (Auto) 0.0 Nucleated RBC % (a uto) 0 Nucleated RBCs # 0.0 Sodium Potassium Chloride Carbon Dioxide Anion Gap BUN Creatinine Glucose Calculated Osmolal ity Lactate Calcium Iron Ferritin Total Bilirubin AST ALT Alkaline Phosphata se NT-Pro-B Natriuret Pep 4988 H Total Protein Albumin Globulin Urine Color Straw Urine Appearance Cloudy Urine pH 5 Ur Specific Gravit y 1.005 Urine Protein Neg Urine Glucose (UA) Norm Urine Ketones Negative Urine Blood 3+ H Urine Nitrate Negative Urine Bilirubin Neg Urine Urobilinogen Norm Ur Leukocyte Sunita ase 2+ H Urine RBC 15-25 H Urine WBC 25-40 H Ur Squamous Epith Cells None Urine Bacteria 4+ H 07/13/19 07/13/19 07/13/19 15:21 14:49 14:46 WBC 15.7 H RBC 2.81 L Hgb 8.6 L Hct 26.8 L MCV 95.4 H MCH 30.6 MCHC 32.1 RDW 18.0 H Plt Count 206 MPV 11.5 H Neut % (Auto) 83.7 Lymph % (Auto) 7.1 Appling % (Auto) 8.6 Eos % (Auto) 0.0 Baso % (Auto) 0.2 Neut # (Auto) 13.2 H Lymph # (Auto) 1.1 Appling # (Auto) 1.4 H Eos # (Auto) 0.0 Baso # (Auto) 0.0 Nucleated RBC % (a uto) 0 Nucleated RBCs # 0.0 Sodium 131 L Potassium 4.5 Chloride 93 L Carbon Dioxide 23 Anion Gap 19.5 H BUN 113 H* D Creatinine 4.0 H Glucose 185 H Calculated Osmolal ity 279 L Lactate 1.6 Calcium 11.1 H Iron Ferritin Total Bilirubin 0.2 AST 25 ALT 17 Alkaline Phosphata se 155 H NT-Pro-B Natriuret Pep Total Protein 6.5 L Albumin 2.5 L Globulin 4.0 Urine Color Urine Appearance Urine pH Ur Specific Gravit y Urine Protein Urine Glucose (UA) Urine Ketones Urine Blood Urine Nitrate Urine Bilirubin Urine Urobilinogen Ur Leukocyte Sunita ase Urine RBC Urine WBC Ur Squamous Epith Cells Urine Bacteria Vitals: Last Vital Signs Temp 97.9 F 07/14/19 11:22 Pulse 47 L 07/14/19 11:22 Resp 17 07/14/19 11:22 BP 86/42 07/14/19 11:30 Pulse Ox 94 07/14/19 11:22 Discharge Plan Discharge Patient Disposition: Home Health Service Condition: Fair Prescriptions: New ciprofloxacin HCl 500 mg tablet 500 mg PO BID 10 Days Qty: 20 RF: 0 Xanax 0.25 mg tablet 0.25 mg PO BID PRN (Reason: anxiety and agitation) Qty: 30 RF: 0 ferrous sulfate 325 mg (65 mg iron) tablet 325 mg PO BID 30 Days Qty: 60 RF: 0 Continued Symbicort 80-4.5 mcg/actuation HFA aerosol inhaler 2 puff INHALATION BID RF: 0 silodosin [Rapaflo] 8 mg capsule 8 mg PO QDAY RF: 0 finasteride 1 mg tablet 1 mg PO QDAY 90 Days Qty: 90 RF: 3 ergocalciferol (vitamin D2) 1,250 mcg (50,000 unit) capsule See Rx Instructions .ROUTE .COMPLEX RF: 0 Discontinued furosemide 40 mg tablet 40 mg PO BID RF: 0 allopurinol 300 mg tablet 300 mg PO QDAY RF: 0 potassium chloride 20 mEq tablet extended release 20 meq PO BID 30 Days Qty: 60 RF: 5 colchicine 0.6 mg capsule 0.6 mg PO QDAY 90 Days Qty: 90 RF: 3 cefuroxime axetil 250 mg Tablet 500 mg PO BID Qty: 14 RF: 0 metolazone 5 mg tablet 5 mg PO PRN PRN (Reason: UNKNOWN) RF: 0 Discharge Orders: Discharge Order (Routine); Ordered 07/14/19 Ordered By: Elmira Toledo Discharge Diet: Regular Discharge Activity: Increase activity as tolerated and Use walker/crutches as instructed Discharge Attestations Time Spent in Discharge Care*: greater than 30 min Specific Discharge Activities: Specific discharge activities: educating patient, educating and/or supporting family/caregiver, discussing with registered nurse hh case manager/social workers/dc planners, documenting/other paperwork and evaluating patient/reviewing data Status at Discharge: Cognitive status at discharge: cognitively intact, Behavioral status at discharge: cooperative and dependent in ADL's, Functional status at discharge: uses cane/walker Overall status at discharge: patient is not back to baseline Quality Metrics Clinical Quality Measures During this hospital stay, did patient experience: None Coding Level of Care Code Acute Web Consultant for Chg Fwd Diagnoses UTI (urinary tract infection) N30.00 Urinary tract infection type: acute cystitis Hematuria presence: without hematuria Acute kidney injury superimposed on CKD N17.9; N18.9 Anemia, chronic disease D63.8 Subdural hematoma S06.5X9A Spermatocele N43.40
--- NOTE | 2019-07-14 15:10 | PC.NURSE ---
patient refused for his vitals to be taken because he said he was going home.
--- NOTE | 2019-07-14 15:23 | PC.NURSE ---
Spoke with Tj Bardales, patients son. He expressed concerns of patient leaving. I educated family that patient has been deemed mentally able to make decisions by physician. He agreed and states that he will be her with a couple hours to pick him up. 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 He voiced understanding. SAGAR, HAN
--- NOTE | 2019-07-20 16:52 | PC.SOCIAL ---
Talked with micro regarding blood culture results. Sent information to Dr Ku and per her no further needs but have PCP review. Sent email to Pepper Powell nurse with a read receipt asking to have Dr Powell review.
--- NOTE | 2019-07-21 11:29 | PC.SOCIAL ---
Pepper returned email regarding culture results and indicated patient has .
== END 2019-07-14 16:45 | disposition home or self-care (01) | DRG 698 ==
LOC: ER 15:22 → MEDSURG 17:54
PROVIDERS: Emergency Medicine; Admitting Provider Family Medicine; Family Provider Family Medicine; PCP Family Medicine; Visit Provider Family Medicine
DX: T83.518A Infection and inflammatory reaction due to other urinary catheter, initial encounter (principal); S06.5X9A Traumatic subdural hemorrhage with loss of consciousness of unspecified duration, initial encounter; I13.0 Hypertensive heart and chronic kidney disease with heart failure and stage 1 through stage 4 chronic kidney disease, or unspecified chronic kidney disease; I50.32 Chronic diastolic (congestive) heart failure; N17.9 Acute kidney failure, unspecified; E44.0 Moderate protein-calorie malnutrition; Y73.1 Therapeutic (nonsurgical) and rehabilitative gastroenterology and urology devices associated with adverse incidents; N18.9 Chronic kidney disease, unspecified; M10.9 Gout, unspecified; J44.9 Chronic obstructive pulmonary disease, unspecified; F17.210 Nicotine dependence, cigarettes, uncomplicated; Z91.81 History of falling; Z66 Do not resuscitate; E03.9 Hypothyroidism, unspecified; R26.89 Other abnormalities of gait and mobility; C61 Malignant neoplasm of prostate; Z87.440 Personal history of urinary (tract) infections; L30.4 Erythema intertrigo; X58.XXXA Exposure to other specified factors, initial encounter; N43.40 Spermatocele of epididymis, unspecified; Z53.29 Procedure and treatment not carried out because of patient's decision for other reasons; Z68.20 Body mass index [BMI] 20.0-20.9, adult; D50.9 Iron deficiency anemia, unspecified; D63.1 Anemia in chronic kidney disease; I95.9 Hypotension, unspecified; E86.0 Dehydration; N13.9 Obstructive and reflux uropathy, unspecified
CPT/HCPCS: 12345; 36415; 51702; 70450; 71045; 73090; 80048; 80053; 81001; 82728; 83540; 83605; 83880; 85014; 85018; 85025; 87040; 87077; 87086; 87186; 87205; 93306; 97161; 97530; 99283; J0696; J1756; J7030; J7040